=== PATIENT | male | born 1965 | race Caucasian/White ===

== ENCOUNTER 2023-05-17 15:00 | Outpatient (CLI) | payer OTHER, SELFPAY ==
[2023-05-17 19:01] LABS: Hemoglobin A1C 6.4 % (<5.7)
== END 2023-05-17 15:01 | disposition home or self-care (01) ==
LOC: ANHGOSHLAB 15:02
PROVIDERS: PCP Internal Medicine; Visit Provider Nurse Practitioner
DX: E11.9 Type 2 diabetes mellitus without complications (principal)
CPT/HCPCS: 36415; 83036

== ENCOUNTER 2024-05-21 14:56 | Outpatient (CLI) | payer OTHER, SELFPAY ==
[2024-05-21 16:50] LABS: Anion Gap 10 mmol/L (4-12); Blood Urea Nitrogen 22 mg/dL (9-20); Calcium 9.2 mg/dL (8.4-10.2); Carbon Dioxide 29 mmol/L (22-30); Chloride 97 mmol/L (98-107); Estimated Glomerular Filt Rate > 60; Glucose 133 mg/dL (65-110); Potassium 3.3 mmol/L (3.4-5.0); Sodium 136 mmol/L (137-145)
[2024-05-21 21:10] LABS: Hemoglobin A1C 6.6 % (<5.7)
== END 2024-05-21 14:57 | disposition home or self-care (01) ==
LOC: ANHGOSHLAB 14:57
PROVIDERS: PCP Internal Medicine; Visit Provider Clinical Nurse Specialist
DX: E11.9 Type 2 diabetes mellitus without complications (principal)
CPT/HCPCS: 36415; 80048; 83036

== ENCOUNTER 2024-08-03 01:22 | Day surgery (SDC) | payer OTHER, SELFPAY ==
[2024-07-25 09:04] VITALS: BMI 32.1
--- NOTE | 2024-07-25 09:31 | PC.NURSE ---
request for crmd and office visit notes faxed to dr jimenez at [facility]. confirmation of fax rec'd.
[2024-08-03 08:31] VITALS: BP 139/84; PULSE 62; RESP 18; TEMP 36.3; O2SAT 97; BMI 31.6
[2024-08-03] MEDS: LACTATED RINGERS 1,000 ML 150 ML IV CONT (08:40)
[2024-08-03 08:41] LABS: Glucose Point of Care 87 mg/dl (65-105)
--- NOTE | 2024-08-03 09:19 | P.PNAN_ITS ---
Anes - Initial Pre Proc Eval Procedure: Operation Date: 08/03/24 09:30 Proposed Procedures p Screening Colonoscopy - Kodak Bautista MD Date/Time: 08/03/24 09:19 Surgeon: Kodak Bautista MD Pre Op Diagnosis: screening colon Patient Data Age: 58 Gender: M Height: 1.7 m Weight: 91.8 kg Last Vital Signs Temp 97.3 F L 08/03/24 08:31 Pulse 62 08/03/24 08:31 Resp 18 08/03/24 08:31 BP 139/84 08/03/24 08:31 Pulse Ox 97 08/03/24 08:31 O2 Del Method Room Air 08/03/24 08:31 Allergies Allergy/AdvReac Type Severity Reaction Status Date / Time No Known Allergies Allergy Verified 08/03/24 08:30 Home Medications Medication Instructions Recorded Confirmed Type aspirin 81 mg tablet,delayed 81 mg PO DAILY #90 tabs 07/26/23 08/03/24 Rx release atorvastatin 40 mg tablet 40 mg PO QHS #90 tabs 05/23/24 08/03/24 Rx enalapril maleate 10 mg tablet 10 mg PO DAILY #90 tabs 05/23/24 08/03/24 Rx hydrochlorothiazide 25 mg tablet 25 mg PO DAILY #90 tabs 05/23/24 08/03/24 Rx metoprolol tartrate 25 mg tablet 25 mg PO BID #180 tabs 05/23/24 08/03/24 Rx tadalafil 10 mg tablet 10 mg PO DAILY PRN sexual activity 05/23/24 08/03/24 Rx #90 tabs empagliflozin 25 mg tablet 25 mg PO DAILY #90 tabs 06/01/24 08/03/24 Rx (Jardiance) Laboratory Tests 08/03/24 08:36 POC Capillary Glucose 87 mg/dl (65-105) Patient hx anesthesia problems: none Family hx anesthesia problems: none Results Review: All pre-operative results and documents have been reviewed as part of the pre- operative evaluation. [facility] Past Medical History Medical History Biceps tendinosis of shoulder Diabetes mellitus Gastric bleed Heart disease Hypertension Pacemaker 2015 Surgical History Surgical History History of carpal tunnel release (~2017) History of hernia repair (~2009) Family History Family History Mother Diabetes mellitus Cancer Father Diabetes mellitus Hypertension Heart problem Grandparent Diabetes mellitus Hypertension Sibling Heart problem Hypertension Other Diabetes mellitus Heart problem Hypertension Social History Social History Smoking status: Never smoker Alcohol intake: current Alcohol use details: once a week or so Substance use: never Substance use type: does not use Lack of Transportation: No Lack of Food: Never True Current Housing: I Have Housing Concerned About Future Housing: No Difficulty Paying Gas/Electric Bills: No Difficulty Paying for Meds: No Currently Unemployed: No Education: Trade/Vocational Certificate Difficulty w/ Childcare or Family Care: No Living arrangements: with family Spiritual care concerns: No Anes - Eval Final PreProcedure Day of Procedure 08/03/24 09:19 Patient weight: obese Heart: regular rate and rhythm Lungs: clear to auscultation Airway: Mallampati scale class II Neurological: alert and oriented Last oral intake: >/= 8 hours ASA classification: III Emergent: no Anesthetic plan: proceed Anesthesia type and monitoring: general GIVS and standard monitoring Results Review: All pre-operative results and documents have been reviewed as part of the pre- operative evaluation. HTN, hyperlipidemia, medtronic pacemaker and is not dependent. Pt physically active w construction work, golf, no cp or sob. Informed Consent: The patient's anesthetic plan and its attendant risks and benefits were discussed with the patient/family/POA. Questions were solicited and answers provided to the satisfaction of the patient/family/POA.
--- NOTE | 2024-08-03 10:02 | PM.IMHP ---
H&P: HPI History of Present Illness Date/Time: 08/03/24 10:02 Chief Complaint: This is the patient's second colonoscopy after 10 years. There are no GI symptoms and there is no family history of colorectal cancer. Narrative: as above Review of Systems Review of Systems: All systems reviewed & are unremarkable except as noted in HPI and below PMFSH Past Medical History Medical History Biceps tendinosis of shoulder Diabetes mellitus Gastric bleed Heart disease Hypertension Pacemaker 2014 Surgical History Surgical History History of carpal tunnel release (~2016) History of hernia repair (~2009) Family History Family History Mother Diabetes mellitus Cancer Father Diabetes mellitus Hypertension Heart problem Grandparent Diabetes mellitus Hypertension Sibling Heart problem Hypertension Other Diabetes mellitus Heart problem Hypertension Social History Social History Smoking status: Never smoker Alcohol intake: current Alcohol use details: once a week or so Substance use: never Substance use type: does not use Lack of Transportation: No Lack of Food: Never True Current Housing: I Have Housing Concerned About Future Housing: No Difficulty Paying Gas/Electric Bills: No Difficulty Paying for Meds: No Currently Unemployed: No Education: Trade/Vocational Certificate Difficulty w/ Childcare or Family Care: No Living arrangements: with family Spiritual care concerns: No Meds Home Medications and Allergies Home Medications Medication Instructions Recorded Confirmed Type aspirin 81 mg tablet,delayed 81 mg PO DAILY #90 tabs 07/26/23 08/03/24 Rx release atorvastatin 40 mg tablet 40 mg PO QHS #90 tabs 05/23/24 08/03/24 Rx enalapril maleate 10 mg tablet 10 mg PO DAILY #90 tabs 05/23/24 08/03/24 Rx hydrochlorothiazide 25 mg tablet 25 mg PO DAILY #90 tabs 05/23/24 08/03/24 Rx metoprolol tartrate 25 mg tablet 25 mg PO BID #180 tabs 05/23/24 08/03/24 Rx tadalafil 10 mg tablet 10 mg PO DAILY PRN sexual activity 05/23/24 08/03/24 Rx #90 tabs empagliflozin 25 mg tablet 25 mg PO DAILY #90 tabs 06/01/24 08/03/24 Rx (Jardiance) Allergies Allergy/AdvReac Type Severity Reaction Status Date / Time No Known Allergies Allergy Verified 08/03/24 08:30 Vital Signs Vital Signs - 24 hr 08/03/24 08:31 Temperature 97.3 F L Pulse Rate 62 Respiratory Rate 18 Blood Pressure 139/84 Pulse Oximetry 97 Oxygen Delivery Room Air Assessment and Plan Assessment and plan (1) Screening for colon cancer: Code(s): Z12.11 - Encounter for screening for malignant neoplasm of colon Status: Acute Plan The patient is deemed a good candidate for the procedure. Consent signed. Will proceed.
[2024-08-03 10:31] VITALS: BP 103/76; PULSE 57; RESP 17; O2SAT 95
[2024-08-03 10:41] VITALS: BP 115/81; PULSE 63; RESP 19; O2SAT 96
[2024-08-03 10:51] VITALS: BP 136/89; PULSE 60; RESP 18; O2SAT 100
== END 2024-08-03 11:02 | disposition home or self-care (01) ==
PROVIDERS: PCP Nurse Practitioner; Referring Provider Nurse Practitioner; Visit Provider Internal Medicine Gastroenterology
PROC: 0DJD8ZZ Inspection of Lower Intestinal Tract, Via Natural or Artificial Opening Endoscopic (ICD-10-PCS; CPT 45378; principal; 2024-08-03 09:30)
DX: Z12.11 Encounter for screening for malignant neoplasm of colon (principal); K62.1 Rectal polyp; K63.5 Polyp of colon; E11.9 Type 2 diabetes mellitus without complications; I11.9 Hypertensive heart disease without heart failure; E66.9 Obesity, unspecified; Z68.31 Body mass index [BMI] 31.0-31.9, adult; Z79.82 Long term (current) use of aspirin; Z79.84 Long term (current) use of oral hypoglycemic drugs; Z98.890 Other specified postprocedural states; Z95.0 Presence of cardiac pacemaker; Z80.9 Family history of malignant neoplasm, unspecified; Z82.49 Family history of ischemic heart disease and other diseases of the circulatory system
CPT/HCPCS: 45385; 82948; 88305; J2003; J2371; J2704; J7120

== ENCOUNTER 2024-11-26 09:15 | Outpatient (CLI) | payer OTHER, SELFPAY ==
--- OUTSIDE RECORDS SUMMARY | 2024-11-26 11:57 | XMS_ITS | Encounter Summary ---
Author Organization [facility] Address [facility] [place] [address] Care Team Providers Care Roller Picker Name Role Phone Pablo Villanueva MD Unavailable [phone] Conrad Pradhan MD Primary Care Provider [phone] Joseline Juarez NP Primary Care Provider [phone] Encounter Details Date Type Department Care Team (Late st Contact Info) Description 02/05/2022 [facility] Message Enc [facility] [address] [address] Mychart, [facility] Provider echo results Social History Tobacco Use Types Packs/Day Years Used Date Smoking Tobacco: Never Smokeless Tobacco: Never Alcohol Use Standard Drinks/Week Comments Yes 0 (1 standard drink = 0.6 oz pur e alcohol) occ. AUDIT-C Answer Date Recorded Q1: How often do you have a drink containing alc ohol? Monthly or less 05/26/2020 Q2: How many drinks containi ng alcohol do you have on a typical day when you are drinking? 1 or 2 05/26/2020 Q3: How often do you have si x or more drinks on one occasion? 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 No / Unsure 02/08/2022 6:55 AM CDT documented as of this encounter Plan of Treatment Upcoming Encounters Date Type Department Care Team (Late st Contact Info) Description 12/03/2024 1:00 PM LINER MACHINE OPERATOR HELPER Allied Health/Nurse Visit [facility] [address] [phone] Pablo Villanueva MD [address] [id number] 01/17/2025 9:45 AM CDT Office Visit [address] [phone] Pablo Villanueva MD [address] [id number] 02/18/2025 2:15 PM CDT [facility] [address] [address] Pablo Villanueva MD [facility] [address] [place], [place] [address] documented as of this encounter Visit Diagnoses Not on filedocumented in this encounter Additional Health Concerns Assessment Noted Time PHQ-9 Depression Total Score: 0 08/13/20 21 7:05 AM CDT documented as of this encounter Care Teams Roller Picker Relationship Specialty Start Date End Date Conrad Pradhan MD [facility] [address] [place] [address] PCP - General FAMILY PRACTICE 12/08/21 10/09/22 Joseline Juarez NP [address] [facility] [address] [place], [place] [id number] PCP - General NURSE PRACTITIONER 10/10/22 Pablo Villanueva MD [facility]. [address] [address]/Medical Interpreter CARDIOVASCULAR DISEASE 03/10/16 documented as of this encounter
--- OUTSIDE RECORDS SUMMARY | 2024-11-26 11:57 | XMS_ITS | Referral Summary ---
Author Organization [facility] Address [address] [place] [id number] Care Team Providers Care Fish Seiner Name Role Phone Conrad Pradhan MD Primary Care Provider [phone] Allergies Active Allergy Reactions Criticality Noted Date Comments Pravastatin Rash Medium 10/04/2019 Medications nitroglycerin (NITROSTAT) 0.[address] 0.4 mg under the tongue every 5 (five) minutes as needed 2 Active metoprolol tartrate (LOPRESSOR) 25 mg immediate release tabletIndicatio ns:Pacemaker Take 1 tablet (25 mg total) by mouth 2 (two) times a day 180 tablet 1 2 Active metFORMIN (GLUCOPHAGE) 1,000 mg tabletIndicatio ns:Controlled type 2 diabetes mellitus without complication, without long-term current use of insulin ([facility]) (HCC) Take 1 tablet (1,000 mg total) by mouth 2 (two) times a day with meals 180 tablet 1 2 Active enalapriL-hydro chlorothiazide (VASERETIC) 10-25 mg per tabletIndicatio ns:Hypertension , essential Take 1 tablet by mouth daily 90 tablet 1 2 Active atorvastatin (LIPITOR) 40 mg tabletIndicatio ns:Dyslipidemia Take 1 tablet (40 mg total) by mouth nightly 90 tablet 1 2 Active aspirin 81 mg enteric coated tabletIndicatio ns:Pacemaker Take 1 tablet (81 mg total) by mouth daily 90 tablet 1 2 Active tadalafiL (ADCIRCA) 10 mg tablet Take 1 tablet (10 mg total) by mouth daily as needed for erectile dysfunction 10 tablet 1 2 Active Active Problems Problem Noted Date Diagnosed Date Sensorineural hearing loss (SNHL) of both ears 1 12/01/2021 Tinnitus of both ears 09/30/2022 Tailbone injury, initial encounter 02/09/2022 Diaphoresis 01/14/2022 Assessment & Plan (01/14/2022 9:46 AM CDT): Recent occurrence (yesterday), seen in ER with unremarkable workup except for elevated TSH level-recommended follow-up with floor layer, stated had already called floor layer and was waiting for call back today. Lower abdominal pain 01/14/2022 Assessment & Plan (01/14/2022 9:46 AM CDT): Acute-ordered abdominal x-ray. Advised follow-up with PCP next week if symptoms persist, ER if worsening or new symptoms. Abdominal bloating 01/14/2022 Assessment & Plan (01/14/2022 9:47 AM CDT): Acute-ordered abdominal x-ray. Advised follow-up with PCP next week if symptoms persist, ER if worsening or new symptoms. Elevated TSH 01/14/2022 Assessment & Plan (01/14/2022 9:45 AM CDT): New finding-ordered TSH level in 1 month. Vasovagal near syncope 01/14/2022 Assessment & Plan (01/14/2022 9:46 AM CDT): Recent occurrence (yesterday), seen in ER with unremarkable workup except for elevated TSH level-recommended follow-up with floor layer, stated had already called floor layer and was waiting for a call back today. Snoring 12/14/2021 Hypersomnia 12/14/2021 Assessment & Plan (12/14/2021 9:59 AM ASSISTANT PROFESSOR OF LIFE SCIENCES): I have ordered a nocturnal polysomnogram split night protocol if necessary, no MSLT. Class 1 obesity due to exces s calories without serious comorbidity with body mass index (BMI) of 32.0 to 32.9 in adult 11/17/2021 Assessment & Plan (11/17/2021 10:46 AM ASSISTANT PROFESSOR OF LIFE SCIENCES): Recommended aggressive Lifestyle modification and weight loss for improving overall weight related health conditions. Follow up in 1 or 3 months for continuing Lifestyle Medicine education and management visit. Dyslipidemia 11/17/2021 Hypertension, essential 11/17/2021 Pacemaker 11/17/2021 Controlled type 2 diabetes m ellitus without complication, without long-term current use of insulin ([facility]) 11/17/2021 Social History Tobacco Use Types Packs/Day Years Used Date Smoking Tobacco: Never AUDIT-C Answer Date Recorded Q1: How often do you have a drink containing alc ohol? Monthly or less 11/17/2021 Q2: How many drinks containi ng alcohol do you have on a typical day when you are drinking? 1 or 2 11/17/2021 Q3: How often do you have si x or more drinks on one occasion? Never 11/17/2021 PHQ-2 Answer Date Recorded PHQ-2 Total Score (If total score is 3 or more points, staff should administer the PHQ-9) 0 11/17/2021 Personal Safety Answer Date Recorded Getting School Help Needed Not on file 10/12 Sex and Gender Information Value Date Recorded Sex Assigned at Not on file Legal Sex Male 12:38 AM ASSISTANT PROFESSOR OF LIFE SCIENCES Gender Identity Not on file Sexual Orientation Not on file Last Filed Vital Signs Vital Sign Reading Time Taken Comments Blood Pressure 140/92 06/01/2022 10:37 PM CDT Pulse 69 06/01/2022 10:37 PM CDT Temperature 36.6 C (97.9 F) 06/01/2022 10:37 PM CDT Respiratory Rate 18 09/30/2022 10:52 AM ASSISTANT PROFESSOR OF LIFE SCIENCES Oxygen Saturation 96% 06/01/2022 10:37 PM CDT Inhaled Oxygen Concentration - - Weight 88.5 kg (195 lb) 09/30/2022 10:52 AM ASSISTANT PROFESSOR OF LIFE SCIENCES Height 170.2 cm (5' 7 ) 09/30/2022 10:52 AM ASSISTANT PROFESSOR OF LIFE SCIENCES Body Mass Index 30.54 09/30/2022 10:52 AM ASSISTANT PROFESSOR OF LIFE SCIENCES Plan of Treatment Not on file Procedures Procedure Name Priority Date/Time Associated Diagnosis Comments POCT HEMOGLOBIN A1C Routine 05/31/2022 7 :25 AM CDT Controlled type 2 diabetes mellitus without complication, without long-term current use of insulin ([facility]/H[facility]) (HCC) PSA, TOTAL Routine 03/01/2018 COLONOSCOPY Routine 12/24/2011 from Last 3 Months or Most Recently Relevant to Health Maintenance Results * POCT hemoglobin A1c (05/31/2022 7:25 AM CDT) Hemoglobin A1C, POC 6.2 Blood specimen (specimen) 05/31/2022 7:25 AM CDT Narrative Esthela Marinelli LPN - 05/31/2022 7:25 AM CDT Lot [id number] /[id number] 12/03/2023 Conrad Pradhan MD POINT OF CARE TEST ORDERABLES Fi nal Result * PSA, total Blood (03/01/2018) SCRIBED PSA, Total 0.87 > - 400 Blood specimen (specimen) 03/01/2018 Result [facility] Historical Provider LAB BLOOD ORDERABLES Katrin l Result * Colonoscopy (12/24/2011) Anatomical Region Laterality Modality Other Historical Provider ENDOSCOPY PROCEDURES Katrin l Result from Last 3 Months or Most Recently Relevant to Health Maintenance Insurance [employer] [facility] HMO HMO HMO/POS Care Teams Fish Seiner Relationship Specialty Start Date End Date Conrad Pradhan MD PCP - General Family Medicine 10/20/21
--- OUTSIDE RECORDS SUMMARY | 2024-11-26 11:57 | XMS_ITS | Encounter Summary ---
Author Organization [facility] Address [address] [place] [address] Care Team Providers Care Professor Of Voice Name Role Phone Pablo Villanueva MD Unavailable Pina Weaver SQL CONSULTANT Primary Care Provider Unav ailable Lyla Zendejas MD Primary Care Provider [phone] Conrad Pradhan MD Primary Care Provider [phone] Joseline Juarez NP Primary Care Provider [phone] Encounter Details Date Type Department Care Team (Late st Contact Info) Description 05/30/2018 [facility] at [address] [address] Scarlett Adams MA Social History Tobacco Use Types Packs/Day Years Used Date Smoking Tobacco: Never Smokeless Tobacco: Never Alcohol Use Standard Drinks/Week Comments No 0 (1 standard drink = 0.6 oz pur e alcohol) Sex and Gender Information Value Date Recorded Sex Assigned at Male 04/05/2019 4:16 PM CDT Legal Sex Male 11:24 PM CDT Gender Identity Male 04/05/2019 4:16 PM CDT Sexual Orientation Straight 04/05/2019 4: 16 PM CDT 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. [address] [place] [address] 01/17/2025 9:45 AM CDT Office [facility] [address] [place] [address] Pablo Villanueva MD [facility]. [address] [place] [address] 02/18/2025 2:15 PM CDT [facility] [address] [place] [address] Pablo Villanueva MD [facility]. [facility] [address] [place] [address] documented as of this encounter Procedures Procedure Name Priority Date/Time Associated Diagnosis Comments COMPREHENSIVE METABOLIC PANEL Routine 10/25/2023 LIPID PANEL Routine 10/25/2023 CBC, MANUAL DIFF Routine 10/25/2023 PROSTATE SPECIFIC ANTIGEN,TOTAL Routine 03/01/2018 COMPREHENSIVE METABOLIC PANEL Routine 03/01/2018 LIPID PANEL Routine 03/01/2018 HEMOGLOBIN, GLYCOSYLATED Routine 03/01/2018 THYROID STIM HORMONE TSH Routine 03/01/2018 VITAMIN D, 25 OH Routine 03/01/2018 documented in this encounter Results * COMPREHENSIVE METABOLIC PANEL (10/25/2023) Pathologist [facility] SODIUM S/P/B 140 GLUCOSE 136 mg/dL AST 12 BUN 21 CREATININE S/P/B 0.89 0.7 - 1.3 CALCIUM S/P/B 8.7 POTASSIUM S/P/B 4.0 CHLORIDE S/P/B 104 ALT 21 GFR ESTIMATE 98 us Default History Genericprovider LABORATORY Edited Result - Final * LIPID PANEL (10/25/2023) Pathologist [facility] CHOLESTEROL 155 TRIGLYCERIDES 182 HDL 43 LDL (CALCULATED) 84 NON HDL CHOLESTEROL 112 us Default History Genericprovider LABORATORY Edited Result - Final * CBC, MANUAL DIFF (10/25/2023) Pathologist [facility] WBC 6.0 HGB 13.6 HCT 39.8 PLT 155 Default History Genericprovider LABORATORY Edited Result - Final * VITAMIN D, 25 OH (03/01/2018) Pathologist [facility] VITAMIN D 25 HYDROXY S/P/B 39 03/01/2018 us Doc [facility] LABORATORY Final Result * PROSTATE SPECIFIC ANTIGEN,TOTAL (03/01/2018) Pathologist [facility] PSA 0.87 03/01/2018 us Doc [facility]AT[facility] Final Result * THYROID STIM HORMONE, TSH (03/01/2018) Pathologist [facility] TSH 1.693 03/01/2018 us Doc [facility] Final Result * LIPID PANEL (03/01/2018) Pathologist [facility] CHOLESTEROL 139 HDL 43 TRIGLYCERIDES 184 NON HDL CHOLESTEROL 96 LDL (CALCULATED) 59.2 03/01/2018 us Doc [facility] Final Result * HEMOGLOBIN, GLYCOSYLATED (03/01/2018) HGB A1C 6.6 03/01/2018 us Doc [facility] Final Result * COMPREHENSIVE METABOLIC PANEL (03/01/2018) SODIUM S/P/B 137 POTASSIUM S/P/B 4.2 CO2 29.9 CHLORIDE S/P/B 101 GLUCOSE 119 mg/dL CALCIUM S/P/B 10.0 BUN 15 CREATININE S/P/B 0.96 0.7 - 1.3 EGFR AFR. AMER. >90 EGFR NON-AFR. AMER. 89 <=90 ALKALINE PHOSPHATASE S/P/B 59 ALT 24 AST 15 BILIRUBIN TOTAL S/P/B 0.5 ALBUMIN S/P/B 4.0 3.5 - 5.0 TOTAL PROTEIN S/P/B 6.8 03/01/2018 us Doc [facility] Final Result documented in this encounter Visit Diagnoses Not on filedocumented in this encounter Care Teams Professor Of Voice Relationship Specialty Start Date End Date Pina Weaver NP [address] [address] PCP - General NURSE PRACTITIONER 05/10/18 08/12/21 [place] [address] [place] [address] PCP - General FAMILY PRACTICE 08/13/21 12/07/21 [place] [address] [place] [address] PCP - General FAMILY PRACTICE 12/08/21 10/09/22 Joseline Juarez NP [address] [facility] [address] [place], [place] [phone] PCP - General NURSE PRACTITIONER 10/10/22 Pablo Villanueva MD [facility]. [address] [address] [place] Logistics Assistant CARDIOVASCULAR DISEASE 03/10/16 documented as of this encounter
--- OUTSIDE RECORDS SUMMARY | 2024-11-26 11:57 | XMS_ITS | Encounter Summary ---
Author Organization [facility] Address [address] [place] [address] Care Team Providers Care Broadcast Maintenance Technician Name Role Phone CatieFabiola de la rosa FANNIE Primary Care Provider Unava ilPablo Parisi MD Unavailable [phone] Pina Weaver OXYGEN PLANT OPERATOR Primary Care Provider Unav ailable Lyla Zendejas MD Primary Care Provider [phone] Conrad Pradhan MD Primary Care Provider [phone] Joseline Juarez OXYGEN PLANT OPERATOR Primary Care Provider [phone] Encounter Details Date Type Department Care Team (Late st Contact Info) Description 06/07/2017 Abstract [facility] AT [address] [address] Scarlett Adams MA Social History Tobacco Use [...] 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 [address] [place] [address] 01/17/2025 9:45 AM CDT Office Visit [address] [phone] Pablo Villanueva MD [facility]. [facility] [address] [place] [address] 02/18/2025 2:15 PM CDT [facility] [address] [place] [address] Pablo Villanueva MD [facility] [address] [place] [address] documented as of this encounter Procedures Procedure Name Priority Date/Time Associated Diagnosis Comments COMPREHENSIVE METABOLIC PANEL Routine 06/03/2017 LIPID PANEL Routine 06/03/2017 documented in this encounter Results * LIPID PANEL (06/03/2017) CHOLESTEROL 129 HDL 50 TRIGLYCERIDES 102 LDL (CALCULATED) 60 06/03/2017 us Doc [facility] LABORATORY Final Result * COMPREHENSIVE METABOLIC PANEL (06/03/2017) SODIUM S/P/B 141 POTASSIUM S/P/B 4.4 CO2 29 CHLORIDE S/P/B 104 GLUCOSE 112 mg/dL CALCIUM S/P/B 9.6 BUN 20 CREATININE S/P/B 0.98 0.7 - 1.3 EGFR AFR. AMER. 102 EGFR NON-AFR. AMER. 88 <=90 ALKALINE PHOSPHATASE S/P/B 57 ALT 17 AST 14 BILIRUBIN TOTAL S/P/B 0.7 ALBUMIN S/P/B 4.3 3.5 - 5.0 TOTAL PROTEIN S/P/B 6.6 GLOBULIN 2.3 06/03/2017 us Doc [facility] Abstract LABORATORY Final Result documented in this encounter Visit Diagnoses Not on filedocumented in this encounter Care Teams Broadcast Maintenance Technician Relationship Specialty Start Date End Date Fabiola Haddad APNP PCP - General LAUNDRY ROOM ATTENDANT 03/10/16 05/09/18 Pina Weaver NP [facility]. [address] [address] PCP - General NURSE PRACTITIONER 05/10/18 08/12/21 [place] [address] [place] [address] PCP - General FAMILY PRACTICE 08/13/21 12/07/21 [place] [address] [place] [address] PCP - General FAMILY PRACTICE 12/08/21 10/09/22 Joseline Juarez NP [address] [place] [address] [address] [place] [address] PCP - General NURSE PRACTITIONER 10/10/22 Pablo Villanueva MD [facility] [address] [place] [address] Anne Fluorescent Solution Mixer CARDIOVASCULAR DISEASE 03/10/16 documented as of this encounter
--- OUTSIDE RECORDS SUMMARY | 2024-11-26 11:57 | XMS_ITS | Encounter Summary ---
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 No / Unsure 02/08/2022 6:55 AM CDT documented as of this encounter Plan of Treatment Upcoming Encounters Date Type Department Care Team (Late st Contact Info) Description 12/03/2024 1:00 PM CAFE TEAM MEMBER Allied Health/Nurse Visit [facility] [address] [phone] Pablo Villanueva MD [address] [address] 01/17/2025 9:45 AM CDT Office Visit [address] [phone] Pablo Villanueva MD [address] [phone] 02/18/2025 2:15 PM CDT Allied [facility] [address] [address] Pablo Villanueva MD [facility]. [facility] [address] [place] [address] documented as of this encounter Visit Diagnoses Not on filedocumented in this encounter Additional Health Concerns Assessment Noted Time PHQ-9 Depression Total Score: 0 08/13/20 21 7:05 AM CDT documented as of this encounter Care Teams Line Camera Operator Relationship Specialty Start Date End Date Conrad Pradhan MD [facility] [address] [place] [address] PCP - General FAMILY PRACTICE 12/08/21 10/09/22 Joseline Juarez NP [address] [facility] [address] [place], [place] [id number] PCP - General NURSE PRACTITIONER 10/10/22 Pablo Villanueva MD [facility]. [address] [address] Anne Warehouse Logistics Manager CARDIOVASCULAR DISEASE 03/10/16 documented as of this encounter
--- OUTSIDE RECORDS SUMMARY | 2024-11-26 11:57 | XMS_ITS | Encounter Summary ---
Author Organization [facility] Address [address] [place] [address] Care Team Providers Care Abrasive Mixer Name Role Phone Pablo Villanueva MD Unavailable [phone] Pina Weaver BASKETBALL REFEREE Primary Care Provider Unav ailable Lyla Zendejas MD Primary Care Provider Conrad Pradhan MD Primary Care Provider [phone] Joseline Juarez BASKETBALL REFEREE Primary Care Provider [phone] Encounter Details Date Type Department Care Team (Late st Contact Info) Description 08/22/2020 [employer] Message Enc [facility] ped[facility] [address] [address] [place], [facility] Provider Please send a pacemaker transmission after you Nerve study Social History Tobacco Use Types Packs/Day Years Used Date Smoking Tobacco: Never Smokeless Tobacco: Never Alcohol Use Standard Drinks/Week Comments Yes 0 (1 standard drink = 0.6 oz pur e alcohol) AUDIT-C Answer Date Recorded Q1: How often do you have a drink containing alc ohol? Monthly or less 05/26/2020 Q2: How many drinks containi ng alcohol do you have on a typical day when you are drinking? 1 or 2 05/26/2020 Q3: How often do you have si x or more drinks on one occasion? 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 [address] [address] 02/18/2025 2:15 PM CDT [facility] [address] [address] Pablo Villanueva MD [facility]. [address] [address] documented as of this encounter Visit Diagnoses Not on filedocumented in this encounter Care Teams Abrasive Mixer Relationship Specialty Start Date End Date Pina Weaver NP [facility] [address] [place] [address] PCP - General NURSE PRACTITIONER 05/10/18 08/12/21 Lyla Zendejas [place] [address] [place] [id number] PCP - General FAMILY PRACTICE 08/13/21 12/07/21 [place] [address] [facility] [place] [address] PCP - General FAMILY PRACTICE 12/08/21 10/09/22 Joseline Juarez NP [address] [facility] [address] [place] [address] PCP - General NURSE PRACTITIONER 10/10/22 Pablo Villanueva MD [address] [address] Tyrone Lean Manufacturing Leader CARDIOVASCULAR DISEASE 03/10/16 documented as of this encounter
--- OUTSIDE RECORDS SUMMARY | 2024-11-26 11:57 | XMS_ITS | Clinical Summary ---
Author Organization [facility] Address [address] [place] [phone] Care Team Providers Care Transition Teacher Name Role Phone Conrad Pradhan MD Primary Care Provider [phone] Allergies Active Allergy Reactions Criticality Noted Date [...] complication, without long-term current use of insulin ([facility]) (HCC) Take 1 tablet (1,000 mg [...] except for elevated TSH level-recommended follow-up with jewelry polisher, stated had already called jewelry polisher and was waiting for call back today. [...] except for elevated TSH level-recommended follow-up with jewelry polisher, stated had already called jewelry polisher and was waiting for a call back today. Snoring 12/14/2021 Hypersomnia 12/14/2021 Assessment & Plan (12/14/2021 9:59 AM CONSTRUCTION MANAGER): I have ordered a nocturnal polysomnogram split night protocol if necessary, no MSLT. Class 1 obesity due to exces s calories without serious comorbidity with body mass index (BMI) of 32.0 to 32.9 in adult 11/17/2021 Assessment & Plan (11/17/2021 10:46 AM CONSTRUCTION MANAGER): Recommended aggressive Lifestyle modification and weight loss for improving overall weight related health conditions. Follow up in 1 or 3 months for continuing Lifestyle Medicine education and management visit. Dyslipidemia 11/17/2021 Hypertension, essential 11/17/2021 Pacemaker 11/17/2021 Controlled type 2 diabetes m ellitus without complication, without long-term current use of insulin (CMS/HCC) 11/17/2021 Surgical History Surgery Date Site/Laterality Comments HERNIA REPAIR BICEPS TENDON REPAIR 08/10/2021 - 09/08/2021 CARPAL TUNNEL RELEASE INSERT / REPLACE / REMOVE PACEMAKER Medical History Medical History Date Comments Diabetes mellitus (HCC) Hypertension Hyperlipidemia GI bleed Family History Medical History Relation Name Comments Heart disease Father Breast cancer Mother Diabetes Mother Relation Name Status Comments Father Mother Alive Social History Tobacco Use Types Packs/Day Years [...] on file Legal Sex Male 12:38 AM CONSTRUCTION MANAGER Gender Identity Not on file Sexual Orientation Not on file Obstetrics History Last Filed Vital Signs Vital Sign Reading Time Taken Comments Blood Pressure 140/92 06/01/2022 10:37 PM CDT Pulse 69 06/01/2022 10:37 PM CDT Temperature 36.6 C (97.9 F) 06/01/2022 10:37 PM CDT Respiratory Rate 18 09/30/2022 10:52 AM CONSTRUCTION MANAGER Oxygen Saturation 96% 06/01/2022 10:37 PM CDT Inhaled Oxygen Concentration - - Weight 88.5 kg (195 lb) 09/30/2022 10:52 AM CONSTRUCTION MANAGER Height 170.2 cm (5' 7 ) 09/30/2022 10:52 AM CONSTRUCTION MANAGER Body Mass Index 30.54 09/30/2022 10:52 AM CONSTRUCTION MANAGER Plan of Treatment Health Maintenance Due Date Last Done Comments Albumin Creatinine Ratio, Urine 1965 Hepatitis C Screening 1965 eGFR 1965 Dilated Eye Exam 1965 Hepatitis B Screening 1981 Pneumococcal vaccine <65 (2 of 2 - PCV) 09/10/2021 09/10/2020 Colon Cancer Screening-Colonoscopy 12/23/20212011 Depression Screening 11/17/2022 11/17/2021 Regular Well Visit/Exam 18-64 11/17/2022 11/17/2021 Hemoglobin A1C 12/01/2022 05/31/2022, 11/17/2021 Lipid Panel 02/08/2023 02/08/2022, 03/01/2018 Foot Exam 05/31/2023 05/31/2022 Prostate Cancer Screening-PSA 02/10/2024 02/09/2022, 03/01/2018 Covid-19 Vaccine (2023-2 5 season) 2024 10/05/2021, 12/28/2020, 12/07/2020 Influenza Vaccine (#1) 2024 , 08/12/2021, 07/24/2021, Additional history exists DTaP/Tdap/Td Vaccine (2 - Td or Tdap) 08/13/2031 08/13/2021 Zoster Vaccine Completed 01/21/2021, 09/09, 09/23/2020 Procedures Procedure Name Priority Date/Time Associated Diagnosis Comments POCT HEMOGLOBIN A1C Routine 05/31/2022 7 :25 AM CDT Controlled type 2 diabetes mellitus without complication, without long-term current use of insulin (CMS/HCC) (HCC) PSA, TOTAL Routine 03/01/2018 COLONOSCOPY Routine 12/24/2011 from Last 3 Months or Most Recently Relevant to Health Maintenance Results * POCT hemoglobin A1c (05/31/2022 7:25 AM CDT) Hemoglobin A1C, POC 6.2 Blood specimen (specimen) 05/31/2022 7:25 AM CDT Narrative Mikhail Marinellindy Sal, KEYPUNCH OPERATOR - 05/31/2022 7:25 AM CDT Lot [id number] 12/03/2023 Conrad Pradhan MD POINT OF CARE TEST ORDERABLES Fi nal Result * PSA, total Blood (03/01/2018) SCRIBED PSA, Total 0.87 > - 400 Blood specimen (specimen) 03/01/2018 Candi Richardson MD LAB BLOOD ORDERABLES Katrin l Result * Colonoscopy (12/24/2011) Anatomical Region Laterality Modality Other Historical Provider ENDOSCOPY PROCEDURES Katrin l Result from Last 3 Months or Most Recently Relevant to Health Maintenance [facility] AETNA [place] HMO/POS Care Teams Transition Teacher Relationship Specialty Start Date End Date Conrad Pradhan MD PCP - General Family Medicine 10/20/21
--- OUTSIDE RECORDS SUMMARY | 2024-11-26 11:57 | XMS_ITS | Clinical Summary ---
Author Organization [facility] Administrative Offices Address [address] [place] [address] Care Team Providers Care Customer Support Analyst Name Role Phone Unavailable Primary Care Provider Unavailabl e Allergies Active Allergy Reactions Criticality Noted Date Comments Pravastatin Muscle Pain Medium 10/04/2019 Medications metoprolol tartrate (LOPRESSOR) 25 mg tablet Take 25 mg by mouth 2 times daily. 2 Active atorvastatin (LIPITOR) 40 mg tablet Take 40 mg by mouth daily at bedtime. 2 Active aspirin (ECOTRIN EC) 81 mg Tablet, Delayed Release (E.C.) Take 81 mg by mouth daily. 2 Active tadalafil (CIALIS) 10 mg tablet Take 10 mg by mouth 1 time daily as needed for Erectile Dysfunction. 1 Active Jardiance 25 mg tablet Take 25 mg by mouth daily. 4 Active enalapril (VASOTEC) 10 mg tablet Take 10 mg by mouth daily. Active hydroCHLOROthiazi de 25 mg tablet Take 25 mg by mouth daily. Active ketorolac tromethamine (ACULAR) 0.5 % solution Administer 1 Drop in left eye 4 times daily. 4 Active prednisoLONE acetate (PRED FORTE) 1 % suspension Administer 1 Drop in left eye 3 times daily. 4 Active traMADoL (ULTRAM) 50 mg tablet Take 1 Tablet (50 mg) by mouth every 6 hours as needed for pain 10 Tablet 11/15/2024 2:11 PM METAL WINDOW FRAME MAKER 5 Active Active Problems Problem Noted Date Diagnosed Date Malfunction of electrode lead of cardiac pacemak er 11/15/2024 SSS (sick sinus syndrome) 11/15/2024 Symptomatic bradycardia 11/15/2024 Cardiac pacemaker in situ 11/15/2024 Encounters Date Type Department Care Team Description 11/23/2024 10:00 AM METAL WINDOW FRAME MAKER Office Visit [facility] - [address] [facility] [phone] [facility] [address] [place] [address] SSS (sick sinus syndrome) ([facility]) (Primary Dx) 11/21/2024 Telephone [facility] - [address] [facility] [phone] [facility] [address] [place] [address] Chong Berger MD Continued left upper arm pain/swelling 11/20/2024 Abstract [facility] - [address] [facility] [phone] [facility] [address] [place] [address] Provider, Abstract 11/16/2024 1:00 PM METAL WINDOW FRAME MAKER Office Visit [facility] - [address] [facility] [phone] [facility] [facility] [address] [address] [place] [phone] Failure of pacemaker lead, initial encounter (Primary Dx); Cardiac pacemaker in situ 11/16/2024 12:45 PM METAL WINDOW FRAME MAKER - 11/16/2024 11:59 PM METAL WINDOW FRAME MAKER Hospital Encounter [facility] Testing [place] [address] [place] [address] Chong Berger MD Discharge Disposition: Home or Self Care 11/16/2024 Telephone [facility] - [address] [facility] [address] [place] [address] Chong Berger MD Venous doppler test result 11/16/2024 Telephone [facility] - [address] [facility] [address] [facility] [address] [place] [address] Chong Berger MD left arm swelling 11/15/2024 7:30 AM METAL WINDOW FRAME MAKER - 11/15/2024 10:24 AM METAL WINDOW FRAME MAKER Surgery [facility] Cardiac Lockstitch Back Maker [id number] [place] [address] Chong Berger MD Pacemaker lead extraction 11/15/2024 7:27 AM METAL WINDOW FRAME MAKER Anesthesia Event [facility] Cardiac Lockstitch Back Maker [id number] [place] [address] Carrie Kincaid MD Gherle, Emily N, ANP 11/15/2024 6:18 AM METAL WINDOW FRAME MAKER - 11/15/2024 2:55 PM METAL WINDOW FRAME MAKER Hospital Encounter [facility] Cardiac [place] [id number] [place] [phone] Chong Berger MD Kasinadhuni, Udayshanker, MD Malfunction of electrode lead of cardiac pacemaker Discharge Disposition: Home or Self Care 11/15/2024 Travel 11/06/2024 External Device Data STL ABSTRACTION Provider, Abstract 10/31/2024 External Device Data STL ABSTRACTION Provider, Abstract 10/31/2024 External Device Data STL ABSTRACTION Provider, Abstract 10/30/2024 7:53 AM METAL WINDOW FRAME MAKER - 10/30/2024 11:59 PM METAL WINDOW FRAME MAKER Hospital Encounter [facility] Pre Surgical Assessment [address] [place] [phone] Chong Berger MD Discharge Disposition: Home or Self Care 10/23/2024 External Device Data STL ABSTRACTION Provider, Abstract 10/23/2024 Prep for Surgery [facility] - [address] [facility] [phone] [facility] [address] [place] [phone] Chong Berger MD 10/23/2024 Telephone [facility] - [address] [facility] [phone] [facility] [address] [place] [phone] Chong Berger MD Schedule lead extraction from Last 3 Months Family History Medical History Relation Name Comments Heart Disease Brother Heart Disease Father No Known Problems Mother Relation Name Status Comments Brother Father Mother Social History Tobacco Use Types Packs/Day Years Used Date Smoking Tobacco: Never Alcohol Use Standard Drinks/Week Comments Yes 0 (1 standard drink = 0.6 oz pur e alcohol) rarely Feeling Safe Answer Date Recorded Are you in a relationship wi th someone who hurts you emotionally and/or physically? No 11/15/2024 Food Insecurity Answer Date Recorded Social/Environmental Concerns No concerns Transportation Needs Answer Date Record ed Social/Environmental Concerns No concerns Housing Stability Answer Date Recorded Social/Environmental Concerns No concerns Utility Needs Answer Date Recorded Social/Environmental Concerns No concerns Sex and Gender Information Value Date Recorded Sex Assigned at Not on file Legal Sex Male 3:59 PM METAL WINDOW FRAME MAKER Gender Identity Not on file Sexual Orientation Not on file Last Filed Vital Signs Vital Sign Reading Time Taken Comments Blood Pressure 121/80 11/15/2024 2:30 PM METAL WINDOW FRAME MAKER Pulse 65 11/15/2024 2:30 PM METAL WINDOW FRAME MAKER Temperature 36.6 C (97.9 F) 11/15/2024 10:05 AM METAL WINDOW FRAME MAKER Respiratory Rate 19 11/15/2024 2:30 PM METAL WINDOW FRAME MAKER Oxygen Saturation 94% 11/15/2024 2:30 PM METAL WINDOW FRAME MAKER Inhaled Oxygen Concentration - - Weight 98.4 kg (217 lb) 11/15/2024 6:31 AM METAL WINDOW FRAME MAKER Height 175.3 cm (5' 9 ) 11/15/2024 6:31 AM METAL WINDOW FRAME MAKER Body Mass Index 32.05 11/15/2024 6:31 AM METAL WINDOW FRAME MAKER Plan of Treatment Health Maintenance Due Date Last Done Comments DIABETES ANNUAL RETINAL EXAM 1981 DIABETES MICROALBUMIN ANNUAL SCREEN 1981 LDL CHOLESTEROL ANNUAL 1981 FIT-DNA Q 3 years 2008 FIT/FOBT Q 1 year 2008 Flex Sig/CT Colonography Q 5 years 2008 DIABETES HBA1C Q 6 MONTHS 12/01/20222021, 08/13/2021, 09/10/2020 DIABETES ANNUAL FOOT EXAM 05/31/2023 05/31/2022 RSV VACCINE (60+ or ) (1 - Risk 60-74 years 1-dose series) 2023 INFLUENZA VACCINE (#1) 2024 09/10/2020 COLORECTAL SCREENING 09/25/2024 09/25/2014, 12/24/19 12 Colorectal Cancer Screening 09/25/2024 Preventative Visit- Commercial 10/10/2024 0 11/17/2021, 08/13/2021, 09/01/2018 DTAP/TDAP/TD VACCINES (2 - T d or Tdap) 08/13/2031 08/13/2021 ZOSTER VACCINE Completed 01/21/2021, 09/23/2020 Medical Devices Implanted Type Area Tuckpointer Device Identifier Shelf Expiration Date Model / Serial / Lot Lead Capsurefix Novus Mri 58cm Endocardial Pacing 5077 5076-58 - [id number] Implanted:Qty: 1 on 11/15/2024 by Chong Berger MD at [facility] Lead Left: Chest [employer]TR[employer]- CRM - BULK BUY [id number] 02/15/2026 5076-58 / [id number] / Tyrx Antibacterial Envelope Med [id number] - [id number] Implanted:Qty: 1 on 11/15/2024 by Chong Berger MD at [facility] Mesh Left: Chest MEDTRON[employer]- CARD RHYTHM MGMT [id number] 08/17/2025 [id number] / / [id number] Pacemaker More Xt Dr Bashir Ipg Dual Chmbr Lesa [id number] - [id number] Implanted:Qty: 1 on 11/15/2024 by Chong Berger MD at [facility] Pacemaker Left: Chest [employer]- CRM - BULK BUY [id number] 04/22/2026 [id number] / [id number] / Explanted Type Area Tuckpointer Device Identifier Shelf Expiration Date Model / Serial / Lot Lead Capsurefix Novus Mri 58cm Endocardial Pacing 5077 5076-58 - [id number] Explanted:Qty: 1 on 11/15/2024 by Chong Berger MD at [facility] Lead N/A: Chest Wall [employer]- CRM - BULK BUY 5076-58 / [id number] / Description:Implant date: Pacemaker Advisa Dr Mckay Mcfadden [id number] - Csc-12/22/2014 Implanted:12/22 (Quantity not on file) Explanted:Qty: 1 on 11/15/2024 by Chong Berger MD at [facility] Pacemaker Chest Wall [employer]- CRM - BULK BUY [id number] / [id number] / Description:Implant date: Per Medtronic rep - MRI Confirmed conditional on 1.5 and 3T. - gera 10/13/20 Procedures Procedure Name Priority Date/Time Associated Diagnosis Comments TELEMETRY REPORT 11/21/2024 9:35 AM METAL WINDOW FRAME MAKER US DOPPLER VENOUS ARM LEFT Routine 11/16/2024 1:36 PM METAL WINDOW FRAME MAKER Failure of pacemaker lead, initial encounter Cardiac pacemaker in situ XR CHEST PA OR AP 1 VW Stat 11/15/2024 10:11 AM METAL WINDOW FRAME MAKER PACEMAKER GENERATOR CHANGE Routine 11/15/2024 9:15 AM METAL WINDOW FRAME MAKER Malfunction of electrode lead of cardiac pacemaker Cardiac pacemaker in situ SSS (sick sinus syndrome) (CMS/HCC) Symptomatic bradycardia PACEMAKER LEAD EXTRACTION Routine 11/15/2024 9:15 AM METAL WINDOW FRAME MAKER Malfunction of electrode lead of cardiac pacemaker Cardiac pacemaker in situ SSS (sick sinus syndrome) (CMS/HCC) Symptomatic bradycardia POC GLUCOSE Routine 11/15/2024 6:35 AM METAL WINDOW FRAME MAKER VERIFICATION BLOOD GROUP Stat 11/15/2024 6:34 AM METAL WINDOW FRAME MAKER Encounter for blood typing PREPARE RED BLOOD CELLS Routine 11/15/2024 6:20 AM METAL WINDOW FRAME MAKER PREPARE RED BLOOD CELLS Routine 11/15/2024 6:20 AM METAL WINDOW FRAME MAKER PREPARE RED BLOOD CELLS Routine 11/15/2024 6:20 AM METAL WINDOW FRAME MAKER PREPARE RED BLOOD CELLS Routine 11/15/2024 6:20 AM METAL WINDOW FRAME MAKER Malfunction of electrode lead of cardiac pacemaker Cardiac pacemaker in situ SSS (sick sinus syndrome) (CMS/HCC) Symptomatic bradycardia EKG 12-LEAD Routine 10/30/2024 9:29 AM METAL WINDOW FRAME MAKER SSS (sick sinus syndrome) (CMS/HCC) HTN (hypertension), benign TYPE AND SCREEN Routine 10/30/2024 9:12 AM METAL WINDOW FRAME MAKER Malfunction of electrode lead of cardiac pacemaker Cardiac pacemaker in situ SSS (sick sinus syndrome) (CMS/HCC) Symptomatic bradycardia BASIC METABOLIC PANEL Routine 10/30/2024 9:12 AM METAL WINDOW FRAME MAKER Malfunction of electrode lead of cardiac pacemaker Cardiac pacemaker in situ SSS (sick sinus syndrome) (CMS/HCC) Symptomatic bradycardia CBC WITH DIFFERENTIAL Routine 10/30/2024 9:12 AM METAL WINDOW FRAME MAKER Malfunction of electrode lead of cardiac pacemaker Cardiac pacemaker in situ SSS (sick sinus syndrome) (CMS/HCC) Symptomatic bradycardia from Last 3 Months Results * TELEMETRY REPORT (11/21/2024 9:35 AM METAL WINDOW FRAME MAKER) us Provider Scanning ECG ORDERABLES Final Result * US DOPPLER VENOUS ARM LEFT (11/16/2024 1:36 PM METAL WINDOW FRAME MAKER) Anatomical Region Laterality Modality Upper Extremity Ultrasound 11/16/2024 1:02 PM METAL WINDOW FRAME MAKER Narrative 11/16/2024 1:48 PM METAL WINDOW FRAME MAKER [facility] Testing Venous Exam Limited Upper Extremity Duplex Patient: Daniel Parada Study ID: [id number] Gender: M : 1965 Age: 59 Race: CAU Height Study Date: 11/16/2024 Weight: Access. #: [id number] *Referring Physician:* Chong Berger MD, Rajiv MD *Ordering Physician:* Chong Berger MD *Retail Coverage Merchandiser Lead:* Neetu Chacko RDCS, T History: Swelling in the left upper extremity. Study data: Study status: Routine. Left upper extremity venous duplex. Doppler flow study including spectral analysis, color and grubbs scale imaging. Birthdate: Patient birthdate: 1965. Age: Patient is 59year(s) old. Sex: gender: male. Study date: Study date: 11/16/2024. Study time: 01:02 PM. Patient status: Outpatient. Impressions No evidence of deep or superficial vein thrombosis involving the veins of the left upper extremity. Tables: Venous flow: + +-------+ + !Location !Overall!Flow properties ! + +-------+ + !Left internal jugular -!Patent !Phasic; spontaneous; compressible ! + +-------+ + !Left subclavian - !Patent !Phasic; spontaneous; normal augmentation; ! ! ! !compressible ! + +-------+ + !Left axillary - !Patent !Phasic; spontaneous; normal augmentation; ! ! ! !compressible ! + +-------+ + !Left brachial - !Patent !Phasic; spontaneous; normal augmentation; ! ! ! !compressible ! + +-------+ + !Left cephalic - !-------!Compressible ! + +-------+ + !Left basilic - !-------!Compressible ! + +-------+ + !Left radial - !Patent !Compressible ! + +-------+ + !Left ulnar - !Patent !Compressible ! + +-------+ + !Right subclavian - !Patent !Phasic; spontaneous; normal augmentation; ! ! ! !compressible ! + +-------+ + *Velocities are expressed in cm/s, Diameters are expressed in mm Prepared and Electronically Authenticated Antony Adame [id number] Procedure Note Antony Adame MD - 11/16/2024 [facility] Venous Exam Limited Upper Extremity Duplex Patient: Daniel Parada Study ID: [id number] Gender: M : 1965 Age: 59 Race: [place] Height Study Date: 11/16/2024 Weight: Access. #: [id number] *Referring Physician:* Chong Berger MD, Rajiv MD *Ordering Physician:* Chong Berger MD *Retail Coverage Merchandiser Lead:* Neetu Chacko RDCS, [place] History: Swelling in the left upper extremity. Study data: Study status: Routine. Left upper extremity venousduplex. Doppler flow study including spectral analysis, color and grubbs scale imaging. Birthdate: Patient birthdate: 1965. Age: Patient is 59year(s) old. Sex: gender: male. Study date: Study date: 11/16/2024. Study time: 01:02 PM. Patient status: Outpatient. Impressions No evidence of deep or superficial vein thrombosis involving the veins ofthe left upper extremity. Tables: Venous flow: + +-------+ + !Location !Overall!Flow properties! + +-------+ + !Left internal jugular -!Patent !Phasic; spontaneous; compressible! + +-------+ + !Left subclavian - !Patent !Phasic; spontaneous; normal augmentation;! ! ! !compressible! + +-------+ + !Left axillary - !Patent !Phasic; spontaneous; normal augmentation;! ! ! !compressible! + +-------+ + !Left brachial - !Patent !Phasic; spontaneous; normal augmentation;! ! ! !compressible! + +-------+ + !Left cephalic - !-------!Compressible! + +-------+ + !Left basilic - !-------!Compressible! + +-------+ + !Left radial - !Patent !Compressible! + +-------+ + !Left ulnar - !Patent !Compressible! + +-------+ + !Right subclavian - !Patent !Phasic; spontaneous; normal augmentation;! ! ! !compressible! + +-------+ + *Velocities are expressed in cm/s, Diameters are expressed in mm Prepared and Electronically Authenticated Antony Adame [id number]:01 us Chong Berger MD ORDERABLES Final Result * XR CHEST PA OR AP 1 VW (11/15/2024 10:11 AM METAL WINDOW FRAME MAKER) Anatomical Region Laterality Modality Chest Computed Radiogr aphy 11/15/2024 10:1 2 AM METAL WINDOW FRAME MAKER Impressions 11/15/2024 10:16 AM METAL WINDOW FRAME MAKER FINDINGS/IMPRESSION: A cardiac device is present with leads terminating in the right atrium and right ventricle.The lungs are clear without focal consolidation. There is no pleural effusion. No pneumothorax. The cardiomediastinal silhouette is normal. DICTATION LOCATION: Location [address] [place] [address] 11/15/2024 10:16 AM METAL WINDOW FRAME MAKER EXAMINATION: XR CHEST PA OR AP 1 VW DATE: 11/15/2024 10:11 AM HISTORY: Post-Operative; Malfunction of electrode lead of cardiac pacemaker; Cardiac pacemaker in situ; SSS (sick sinus syndrome) (CMS/HCC); Symptomatic bradycardia; Encounter for blood typing COMPARISON: No prior study is available for comparison at the time of this dictation. Chong Berger MD DIAGNOSTIC IMAGING ORDERABLES Ed ited Result - Final * PACEMAKER LEAD EXTRACTION, PACEMAKER GENERATOR CHANGE (11/15/2024 9:15 AM METAL WINDOW FRAME MAKER) 11/15/2024 7:12 AM METAL WINDOW FRAME MAKER Narrative Chong Berger MD - 11/16/2024 7:25 AM METAL WINDOW FRAME MAKER 1) Arterial line placed for the duration of the case. 2) Transvenous extraction of a RV pacing lead performed. 3) Insertion of a new RV pacing lead performed. 4) Dual-chamber PPM pulse generator replaced. 5) Temporary pacing catheter inserted for the duration of the case. Estimated Blood Loss There was minimal blood loss during procedure. Procedure Details Transvenous extraction of a RV pacing lead, implantation of a new RV pacing lead and replacement of a dual chamber PPM pulse generator Daniel Parada is a 59 y.o. male MR#: [id number] EP Physician/Implanting Physician: Chong Berger MD DATE: 11/15/2024 Allergies Allergies Allergen Reactions Pravastatin Muscle Pain Current Medications Current Facility-Administered Medications Medication Dose Route Frequency Provider Last Rate Last Admin sodium chloride 0.9 % infusion IV pre-proc continuous Chong Berger MD 30 mL/hr at 11/15/24 0635 New Bag at 11/15/24 0635 ceFAZolin (ANCEF,KEFZOL) 2,000 mg in sterile water 20 mL syringe 2,000 mg IV pre-proc one time Chong Berger MD sodium chloride 0.9% irrigation 500 mL with ceFAZolin (ANCEF,KEFZOL) 1,000 mg IRRIGATION Irrigation intra-proc ONE time Chong Berger MD lidocaine 1 % (XYLOCAINE) injection 5 mg 0.5 mL Infiltration pre-proc one time Fadia Page MD lactated ringers infusion IV continuous Fadia Page MD Pre-Procedure Diagnosis: RV lead malfunction, sick sinus syndrome/symptomatic bradycardia, status post implantation of a dual chamber pacemaker with low battery status, CAD, diabetes, peptic ulcer disease, hypertension and hyperlipidemia. Post-Procedure Diagnosis: RV lead malfunction, sick sinus syndrome/symptomatic bradycardia, status post implantation of a dual chamber pacemaker with low battery status, CAD, diabetes, peptic ulcer disease, hypertension and hyperlipidemia. Procedure Performed: 1) Arterial line placement. 2) Transvenous extraction of a RV pacing lead. 3) Insertion of a new RV pacing lead. 4) Removal of a dual-chamber PPM pulse generator. 5) Insertion of a new dual-chamber PPM pulse generator. 6) Temporary pacing catheter insertion. Brief History: Mr. Parada is a pleasant 59 y.o. male with CAD, sick sinus syndrome/symptomatic bradycardia, status post implantation of a dual Mdt pacemaker in December 2014, diabetes, peptic ulcer disease, hypertension and hyperlipidemia. He needs a left shoulder MRI. However, given increased RV pacing threshold, his pacemaker was unable to be programmed to a MRI safe mode. Recent TTE showed LVEF of 55 to 60%. He has significantly increased RV pacing threshold and given this, his pacemaker was unable to be placed in the MRI safe mode recently when he needed left shoulder surgery. Need for RV pacing remains minimal. Given this, we discussed the options including having the pacemaker programmed manually to have an MRI performed or proceeding with extraction of the lead with implant of a new lead to be able to have the MRI safely performed as well as have the ability in the future to have MRIs done as well. Possible risks/complications of lead extraction were discussed in detail including, but not limited to major vascular injury/SVC tear, cardiac perforation, need for emergent cardiac surgery/blood transfusion, damage to tricuspid valve, damage to atrial lead requiring revision/replacement, deep vein thrombosis/pulmonary embolism, adverse reaction to medications/anesthesia/sedation, esophageal injury from intraoperative WILLIAM as well as possible . After discussing these issues in detail, he understood and wanted to proceed with RV lead extraction with replacement. Also, given low PG battery status with estimated only 1.5 years left, PG will be replaced as well. He now presents for this procedure. Procedure: The patient was explained about the nature of the procedure: i.e., RV lead extraction with implantation of a new lead and replacement of pacemaker pulse generator. The indications, specific risks and complications were discussed in detail. The specific risks included, but were not limited to, major vascular injury/SVC tear, cardiac perforation, need for emergent cardiac surgery/blood transfusion, damage to tricuspid valve, damage to atrial lead requiring revision/replacement, deep vein thrombosis/pulmonary embolism, adverse reaction to medications/anesthesia/sedation, esophageal injury from intraoperative WILLIAM as well as possible . He understood these complications very well and agreed to proceed with the planned procedure. After obtaining informed consent, the patient was transferred to the Electrophysiology Lab in the post-prandial fasting state. IV Ancef was used for antibiotic prophylaxis. General anesthesia was administered and intraoperative WILLIAM was performed. Both groins were prepped and draped in the usual sterile fashion. 2% Xylocaine was locally injected in the right groin. One 6-F and one 7-F sheath were placed in the right femoral vein. Through the 7-F sheath using fluoroscopy, a standard 6 Fr diagnostic quadripolar EP catheter was advanced and positioned at the right ventricular apex. Acceptable pacing threshold was obtained. Through the 6- F sheath, a 260 cm long super stiff 0.035 inch guidewire was passed up to the right IJ vein in preparation to deploy the Swapdom Bridge SVC occlusion balloon if needed in case of a SVC tear. The guidewire was then secured in place. A 4F sheath was placed in the right femoral artery. The arterial line was placed to monitor the patient's arterial blood pressure during the lead extraction process. The sheaths were then secured in place. Next, the chest was prepped and draped in sterile fashion. 2% Xylocaine was used to create an area of local anesthesia over the old incision site in the left pectoral location. This site was opened up and dissection was carried down to the existing DC PPM PG, Medtronic Advisa model # A2DR01 serial # [id number]. Hemostasis was secured using electrocautery. The posterior capsule was removed until bleeding muscle was encountered. The PG was explanted and disconnected from the chronic leads: Atrial lead, Medtronic, bipolar, active fixation, model # 5076, serial # [id number] (45 cm in length) and right ventricular lead, Medtronic, bipolar, active fixation, model # 5076, serial # [id number]. The PG and leads were implanted on 01/01/2015. The leads were attached to a pacemaker system analyzer. Atrial pacing threshold was 0.5 volt at 0.4 millisecond pulse duration; pacing impedence was 372 ohms. Intracardiac P- wave amplitude was 3.0 millivolts. Ventricular pacing threshold was 2.0 volts at 1.5 millisecond pulse duration. Pacing impedence was 1882 ohms. Intracardiac R-wave amplitude was 8.5 millivolts. The fibrosis around the leads was dissected and the suture sleeves were identified. The sutures around the RV lead were cut away.The screw helix could not be retracted back. The artery lead was then prepared for extraction. The lead was cut in the pocket and the inner pacing lumen was exposed. A standard length Swapdom EZ LLD locking stylet was introduced down the inner pacing lumen and locked at the tip of the lead. A 0 silk suture was tied around the outer insulation of the lead. The suture was then passed through the eye of the locking stylet. Over this was passed a XZERES Laser sheath, size 14 Fr. Using steady manual tug on the lead and lasing at 80 Hz, the extraction process was begun. There was dense fibrosis encountered in the left innominate vein, SVC and right ventricle. The fibrous tissue was gradually dissected away. Once this was done, the lead came loose and was removed as one fragment without leaving any fragments behind. Post extraction, the cardio phrenic and costo-phrenic angles were clear. There was no mediastinal widening noted. The patients blood pressure remained stable during the lead extraction process. WILLIAM showed no pericardial effusion. The lead was removed with the extraction sheath. Atrial lead function was normal after RV lead extraction and this lead was not replaced. Next, under fluoroscopy, access was obtained via a puncture in the left axillary vein. Modified Seldinger technique was used. After documenting the proper position of the needle by aspiration of venous blood, a 60 cm J-tipped, 0.035-inch diameter, guidewire was advanced through the needle into the left axillary vein and then into the right atrium. A 7.0 Greenlandic vessel dilator/sheath assembly was advanced over the guidewire into the axillary vein and the guidewire was removed. From with the sheath, a Medtronic pace/sense lead, Capsure Fix Novus, bipolar, active fixation, model # 5076, serial # [id number] (58 cm in length), was advanced to the RVOT and then dropped to the lower interventricular septum and the helix screwed out. The lead was tested with a pacemaker system analyzer. Ventricular pacing threshold was 0.5 volt at a 0.4 millisecond pulse duration. Pacing impedance was 779 ohms. Intracardiac R wave amplitude was 9.0 millivolts. Diaphragmatic stimulation could not be induced with a 10 volt pacing stimulus. The sheath was then peeled away. The RV lead was then secured using a 0-Ethibond suture around the suture sleeve. Both leads were attached to a new PPM PG, DiscoveRX More XT DR, model # W1DR01, serial # [id number], which was programmed to the following parameters: Mode: AAI/DDD Programmed: 50 ppm Upper Tracking Rate: 130 ppm A-V Delay: 270/240 ms Atrial Settings Ventricular Settings Output Amplitude: 1.5 Volts 3.5 Volts Pulse Duration: 0.4 ms 0.4 ms Sensitivity: 0.3 mV 1.20 mV The PPM was placed into a DiscoveRX Tyrx antibacterial envelope and then in the pocket. It was noted to be pacing and sensing in normal function. Care was taken to position the leads behind the PPM. The pocket was copiously irrigated with Ancef antibiotic solution. The deep layer was closed using a 2.0 vicryl suture in a running fashion and the skin was closed using a 4.0 Vicryl in a subcuticular fashion. The wound was covered with steri-strips and an occlusive Aquacel dressing. The temporary pacing catheter and guidewire from the groin were removed under fluoroscopy. All the sheaths were removed as well and hemostasis was achieved with manual groin compression. The patient tolerated the procedure well with an estimated blood loss of 30-40 cc. Post procedure chest x-ray will be obtained. Routine pain medications were ordered for the patient. Needle and sponge counts were accurate at the end of the case. No complications were seen. A left arm sling was applied and he was transferred to the recovery room in stable condition. Impression: 1) Arterial line placed for the duration of the case. 2) Transvenous extraction of a RV pacing lead performed. 3) Insertion of a new RV pacing lead performed. 4) Dual-chamber PPM pulse generator replaced. 5) Temporary pacing catheter inserted for the duration of the case. Post Procedure: 1) Bed rest for 3 hours. 2) Routine pain medications. 3) Vital signs per nursing protocol. 4) Maintain sling to the left arm. 5) Single view- CXR today. 6) Standard PPM teaching will be performed. 7) Routine follow-up appointments will be made. 8) Watch the right groin for bleeding. Procedural Indications RV lead malfunction, sick sinus syndrome/symptomatic bradycardia and status post implantation of a dual chamber pacemaker with low battery status. us Chong Berger MD CUP EP ORDERABLES Final Result * (ABNORMAL) POC GLUCOSE (11/15/2024 6:35 AM METAL WINDOW FRAME MAKER) GLUCOSE POC 163(H) 74 - 99 mg/dL 11/15/2024 6:35 AM METAL WINDOW FRAME MAKER [facility] POINT OF CARE SPECIMEN SOURCE, GLUCOSE POC Whole Blood 11/15/2024 6:35 AM METAL WINDOW FRAME MAKER [facility] POINT OF CARE Blood, whole 11/15/2024 6:35 AM METAL WINDOW FRAME MAKER 11/15/2024 6:43 AM METAL WINDOW FRAME MAKER us Chong Berger MD POINT OF CARE TESTING Final Resu lt Performing Organization Address City/[facility]/ZIP Co de Phone Number [facility] POINT OF CARE CLIA # [id number] [place] [address] * VERIFICATION BLOOD GROUP (11/15/2024 6:34 AM METAL WINDOW FRAME MAKER) ABO GROUP A 11/15/2024 6:51 AM METAL WINDOW FRAME MAKER [facility] RH (D) TYPE Positive 11/15/2024 6:51 AM METAL WINDOW FRAME MAKER [facility] [employer] [facility] Blood Venipuncture / Unknown 11/15/2024 6:34 AM METAL WINDOW FRAME MAKER 11/15/2024 6:34 AM METAL WINDOW FRAME MAKER us Chong Berger MD BLOOD BANK ORDERABLES Final Resu lt [facility] CLIA# [id number] [place] [address] * PREPARE RED BLOOD CELLS (11/15/2024 6:20 AM METAL WINDOW FRAME MAKER) Only the most recent of4 resultswithin the time period is included. COMPONENT TYPE [id number] [facility] COMPONENT IDENTIFICATION [id number]-* [facility] UNIT ABO A [facility] UNIT RH POS [facility] CROSSMATCH Compatible [facility] COMPONENT STATUS Returned [facility] - [facility] COMPONENT EXPIRATION DATE/TIME [id number] [facility] COMPONENT CODING SYSTEM 6200 [facility] VOLUME, BLOOD PRODUCT 350 [facility] 11/15/2024 6:20 AM METAL WINDOW FRAME MAKER us Chong Berger MD LAB TRANSFUSION ORDERABLES Edite d Result - Final [facility] CLIA# [id number] [address] [place] [address] * EKG 12-LEAD (10/30/2024 9:29 AM METAL WINDOW FRAME MAKER) 10/30/2024 9:29 AM METAL WINDOW FRAME MAKER Narrative INTERFACE SYSTEM - 10/30/2024 9:43 AM METAL WINDOW FRAME MAKER [address] [address] Test Date: 2024-10-30 Pat Name: DANIEL CROWELLPAO Department: 60 Room: Gender: Male Corporate Safety Director: : 1965 Requested By: CHONG BERGER Order Number: [id number] Reading MD: Shant Bryant Measurements Intervals Wing Rate: 50 P: -3 MA: 204 QRS: 48 QRSD: 84 T: 55 QT: 416 QTc: 379 Interpretive Statements Atrial-paced rhythm Abnormal ECG No previous ECG available for comparison Electronically Signed On 10-30-2024 9:43:01 METAL WINDOW FRAME MAKER by Shant Bryant Procedure Note Shant Bryant MD - 10/30/[address] [address] Test Date: 2024-10-30 Pat Name: DANIEL PARADA Department: 60 Room: Gender: Male Corporate Safety Director: RANDY : 1965 Requested By: CHONG BERGER Order Number: [id number] Reading MD: Shant Bryant Measurements Intervals Wing Rate: 50 P: -3 MA: 204 QRS: 48 QRSD: 84 T: 55 QT: 416 QTc: 379 Interpretive Statements Atrial-paced rhythm Abnormal ECG No previous ECG available for comparison Electronically Signed On 10-30-2024 9:43:01 METAL WINDOW FRAME MAKER by Shant Bryant Fadia Page MD ECG ORDERABLES Final Result INTERFACE SYSTEM Refer to clinic/hospital department * (ABNORMAL) CBC WITH DIFFERENTIAL (10/30/2024 9:12 AM METAL WINDOW FRAME MAKER) WBC 6.1 4.0 - 9.8 K/uL 10/30/2024 10:50 AM METAL WINDOW FRAME MAKER [facility] RBC 5.44(H) 4.50 - 5.40 M/uL 10/30/2024 10:50 AM [facility] HEMOGLOBIN 16.1 13.6 - 16.5 g/dL 10/30/2024 10:50 AM METAL WINDOW FRAME MAKER [facility] HEMATOCRIT 46.4 40.0 - 48.0 % 10/30/2024 10:50 AM METAL WINDOW FRAME MAKER [facility] MCV 85.3 82.0 - 99.0 fL 10/30/2024 10:50 AM METAL WINDOW FRAME MAKER [facility] MCH 29.6 27.2 - 32.6 pg 10/30/2024 10:50 AM METAL WINDOW FRAME MAKER [facility] MCHC 34.7 31.5 - 35.5 g/dL 10/30/2024 10:50 AM METAL WINDOW FRAME MAKER [facility] RDW 12.1 11.5 - 14.5 % 10/30/2024 10:50 AM METAL WINDOW FRAME MAKER [facility] RDW-STDEV 37.1 37.1 - 48.7 fL 10/30/2024 10:50 AM METAL WINDOW FRAME MAKER [facility] PLATELETS 155 140 - 350 K/uL 10/30/2024 10:50 AM METAL WINDOW FRAME MAKER [facility] MPV 9.0(L) 9.3 - 12.4 fL 10/30/2024 10:50 AM METAL WINDOW FRAME MAKER [facility] NEUTROPHILS 64 % 10/30/2024 10:50 AM METAL WINDOW FRAME MAKER [facility] LYMPHOCYTES 24 % 10/30/2024 10:50 AM METAL WINDOW FRAME MAKER [facility] MONOCYTES 10 % 10/30/2024 10:50 AM METAL WINDOW FRAME MAKER [facility] EOSINOPHILS 2 % 10/30/2024 10:50 AM METAL WINDOW FRAME MAKER [facility] BASOPHILS 1 % 10/30/2024 10:50 AM METAL WINDOW FRAME MAKER [facility] IMMATURE GRANULOCYTES 0 % 10/30/2024 10:50 AM METAL WINDOW FRAME MAKER [facility] NEUTROPHIL ABSOLUTE 3.90 1.90 - 7.00 K/uL 10/30/2024 10:50 AM METAL WINDOW FRAME MAKER [facility] LYMPHOCYTE ABSOLUTE 1.46 0.70 - 4.50 K/uL 10/30/2024 10:50 AM METAL WINDOW FRAME MAKER [facility] MONOCYTE ABSOLUTE 0.59 0.10 - 1.30 K/uL 10/30/2024 10:50 AM METAL WINDOW FRAME MAKER [facility] EOSINOPHIL ABSOLUTE 0.10 0.00 - 0.70 K/uL 10/30/2024 10:50 AM METAL WINDOW FRAME MAKER [facility] BASOPHILS ABSOLUTE 0.05 0.00 - 0.20 K/uL 10/30/2024 10:50 AM METAL WINDOW FRAME MAKER [facility] IMMATURE GRANULOCYTES ABSOLUTE 0.02 0.00 - 0.03 K/uL 10/30/2024 10:50 AM METAL WINDOW FRAME MAKER [facility] Blood Venipuncture / Unknown 10/30/2024 9:12 AM METAL WINDOW FRAME MAKER 10/30/2024 10:50 AM METAL WINDOW FRAME MAKER us Chong Berger MD HEMATOLOGY ORDERABLES Final Resu lt [facility] CLIA# [id number] [address] [place] [address] * TYPE AND SCREEN (10/30/2024 9:12 AM METAL WINDOW FRAME MAKER) Pathologist [facility] ABO GROUP A 10/30/2024 11:52 AM [facility] RH (D) TYPE Positive 10/30/2024 11:52 AM [facility] ANTIBODY SCREEN Negative 11:52 AM [facility] [employer] [facility] Comment:TYPE AND SCREEN EXTE NDED UNTIL 11/18/2024. VERIFICATION ORDERED. Blood Venipuncture / Unknown 10/30/2024 9:12 AM METAL WINDOW FRAME MAKER 10/30/2024 10:42 AM METAL WINDOW FRAME MAKER us Chong Berger MD BLOOD BANK ORDERABLES Edited Res ult - Final [facility] CLIA# [id number] [address] [place] [address] * (ABNORMAL) BASIC METABOLIC PANEL (10/30/2024 9:12 AM METAL WINDOW FRAME MAKER) Pathologist [facility] SODIUM 136 136 - 145 mmol/L 10/30/2024 11:17 AM [facility] POTASSIUM 3.8 3.4 - 5.1 mmol/L 10/30/2024 11:17 AM [facility] CHLORIDE 101 98 - 107 mmol/L 10/30/2024 11:17 AM [facility] CO2 22 22 - 29 mmol/L 10/30/2024 11:17 AM [facility] CALCIUM 9.9 8.6 - 10.4 mg/dL 10/30/2024 11:17 AM [facility] BUN 26(H) 6 - 20 mg/dL 10/30/2024 11:17 AM [facility] CREATININE 1.09 0.67 - 1.17 mg/dL 10/30/2024 11:17 AM [facility] GLUCOSE 106(H) 74 - 99 mg/dL 10/30/2024 11:17 AM [facility] GFR >60 >=60 mL/min/1.7 3 sq meter 10/30/2024 11:17 AM [facility] Comment:eGFR calculated with 2020 CKD-EPI equation. Vegetarian diet, extremely high or low muscle mass, and may affect results. Cystatin C with Glomerular Filtration Rate is a suitable alternative for these patients. ANION GAP 13 8 - 16 mmol/L 10/30/2024 11:17 AM [facility] Blood Venipuncture / Unknown 10/30/2024 9:12 AM METAL WINDOW FRAME MAKER 10/30/2024 10:48 AM METAL WINDOW FRAME MAKER us Chong Berger MD CHEMISTRY ORDERABLES Final Resul t [facility] CLIA# [id number] [address] [place] [address] from Last 3 Months Insurance [facility] OPTIONS PPO [id number] RX [employer] RX Member Subscriber Plan / Payer (Ef fective 2024-Present) Name:DaliamayiDaniel Relation to Subscriber:Self Name:Daniel Parada Subscriber ID:Not on file Payer ID:Not on file Type:Not on file Address: [address] [employer] Advance Directives For more information, please contact: [phone] Documents on File Type Date Recorded Patient Team Primary Care Physician Expl anation Advance Directive POA 10/30/2024 7:59 AM A dvance Directive POA * Full Code (Latest Code Status on File) Date Activated Date Inactivated Comments 11/15/2024 9:44 AM 11/15/2024 5:15 PM
--- OUTSIDE RECORDS SUMMARY | 2024-11-26 11:57 | XMS_ITS | Encounter Summary ---
Author Organization [facility] Address [address] [place] [address] Care Team Providers Care Fuel Distribution System Operator Name Role Phone Pablo Villanueva MD Unavailable [phone] Pina Weaver DISINTEGRATOR OPERATOR Primary Care Provider Unav ailable Lyla Zendejas MD Primary Care Provider [phone] Conrad Pradhan MD Primary Care Provider [phone] Joseline Juarez NP Primary Care Provider [phone] Encounter Details Date Type Department Care Team (Late st Contact Info) Description 04/03/2021 Reacción Message Enc [facility] [address] [place], [facility] Provider RE: In Clinic Device Evaluation Social History Tobacco Use Types Packs/Day Years [...] 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 [facility] [address] [place], [place] [address] 02/18/2025 2:15 PM CDT [facility] [address] [place] [address] Pablo Villanueva MD [facility]. [facility] [address] [place], [place] [address] documented as of this encounter Visit Diagnoses Not on filedocumented in this encounter Care Teams Fuel Distribution System Operator Relationship Specialty Start Date End Date Pina Weaver NP [facility] [address] [place] [address] PCP - General NURSE PRACTITIONER 05/10/18 08/12/21 [place] Zendejas [place] [id number] [place] [id number] PCP - General FAMILY PRACTICE 08/13/21 12/07/21 [place] [address] [place] [address] PCP - General FAMILY PRACTICE 12/08/21 10/09/22 Joseline Juarez NP [address] [facility] [address] [place] [address] PCP - General NURSE PRACTITIONER 10/10/22 Pablo Villanueva MD [address] [address] [place] Wrecking Crane Engine Operator CARDIOVASCULAR DISEASE 03/10/16 documented as of this encounter
--- OUTSIDE RECORDS SUMMARY | 2024-11-26 11:57 | XMS_ITS | Encounter Summary ---
Author Organization [facility] Address [address] [place] [address] Care Team Providers Care Director Of Community Life Name Role Phone Pablo Villanueva MD Unavailable [phone] Conrad Pradhan MD Primary Care Provider [phone] Joseline Juarez NP Primary Care Provider [phone] Encounter Details Date Type Department Care Team (Late st Contact Info) Description 02/01/2022 Springbukt Message [facility] [id number] [place] [phone] Pablo Villanueva MD [address] [address] Sleep study results Social History Tobacco Use Types Packs/Day [...] 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 No / Unsure 02/03/2022 8:06 PM CDT documented as of this encounter Plan of Treatment Upcoming Encounters Date Type Department Care Team (Late st Contact Info) Description 12/03/2024 1:00 PM BOROUGH COORDINATOR Allied Health/Nurse Visit [address] [phone] Pablo Villanueva MD [address] [address] 01/17/2025 9:45 AM CDT Office Visit [address] [phone] Pablo Villanueva MD [address] [address] 02/18/2025 2:15 PM CDT Allied Health/Nurse Visit [facility], [address] [address] Pablo Villanueva MD [address] [phone] documented as of this encounter Visit Diagnoses Not on filedocumented in this encounter Additional Health Concerns Assessment Noted Time PHQ-9 Depression Total Score: 0 08/13/20 21 7:05 AM CDT documented as of this encounter Care Teams Director Of Community Life Relationship Specialty Start Date End Date Conrad Pradhan MD Three [facility]. [address] [address] PCP - General FAMILY PRACTICE 12/08/21 10/09/22 Joseline Juarez NP [address] [facility] [address] [place], [place] [address] PCP - General NURSE PRACTITIONER 10/10/22 Pablo Villanueva MD Three [facility]. [facility] [address] [place] [address] CARDIOVASCULAR DISEASE 03/10/16 documented as of this encounter
--- OUTSIDE RECORDS SUMMARY | 2024-11-26 11:57 | XMS_ITS | Encounter Summary ---
Author Organization [facility] Address [address] [place] [address] Care Team Providers Care Structural Steel Worker Apprentice Name Role Phone Pablo iVllanueva MD Unavailable [phone] Pina Weaver CLINICAL ATHLETIC INSTRUCTOR Primary Care Provider Unav eleazarable Lyla Zendejas MD Primary Care Provider [phone] Conrad Pradhan MD Primary Care Provider [phone] Joseline Juarez NP Primary Care Provider [phone] Encounter Details Date Type Department Care Team (Late st Contact Info) Description 09/22/2020 Sakhr Software Message Enc [facility] [address] [place], [facility] Provider Yearly device check at [place] [facility] Social History Tobacco Use Types Packs/Day Years [...] 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 Unable to assess 09/22/2020 4:15 PM HEAVY EQUIPMENT OPERATOR documented as of this encounter Plan of Treatment Upcoming Encounters Date Type Department Care Team (Late st Contact Info) Description 12/03/2024 1:00 PM HEAVY EQUIPMENT OPERATOR Allied Health/Nurse Visit [facility] [address] [phone] Pablo Villanueva MD [facility]. [address] [address] 01/17/2025 9:45 AM CDT Office Visit [address] [phone] Pablo Villanueva MD [facility]. [facility] [address] [place], [place] [address] 02/18/2025 2:15 PM CDT Allied Health[facility] [address] [place] [address] Pablo Villanueva MD [facility]. [facility] [address] [place], [place] [address] documented as of this encounter Visit Diagnoses Not on filedocumented in this encounter Care Teams Structural Steel Worker Apprentice Relationship Specialty Start Date End Date Pina Weaver NP [facility]. [facility] [address] [place] [address] PCP - General NURSE PRACTITIONER 05/10/18 08/12/21 [place] [address] [place] [address] PCP - General FAMILY PRACTICE 08/13/21 12/07/21 [place] [address] [place] [address] PCP - General FAMILY PRACTICE 12/08/21 10/09/22 Joseline Juarez NP [address] [place] [address] [address] [place] [address] PCP - General NURSE PRACTITIONER 10/10/22 Pablo Villanueva MD Three [facility]. [address] [address] Anne Lockstitch Tunnel Elastic Operator CARDIOVASCULAR DISEASE 03/10/16 documented as of this encounter
--- OUTSIDE RECORDS SUMMARY | 2024-11-26 11:57 | XMS_ITS | Encounter Summary ---
Author Organization [facility] Address [address] [place] [address] Care Team Providers Care Ophthalmology Surgical Technician Name Role Phone Fabiola Haddad APGANGA Primary Care Provider Unava ilPablo Parisi MD Unavailable [phone] Pina Weaver UPHOLSTERER INSIDE Primary Care Provider Unav Lyla Mora MD Primary Care Provider [phone] Conrad Pradhan MD Primary Care Provider [phone] Joseline Juarez UPHOLSTERER INSIDE Primary Care Provider [phone] Encounter Details Date Type Department Care Team (Late st Contact Info) Description 08/13/2017 [place] [address] , Generic Conversion, Social History Tobacco Use Types Packs/Day Years [...] 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. [facility] [address] [place] [address] 01/17/2025 9:45 AM CDT Office Visit [facility] [address] [place] [phone] Pablo Villanueva MD [facility]. [facility] [address] [place], [place] [address] 02/18/2025 2:15 PM CDT [facility] [address] [place] [address] Pablo Villanueva MD [facility]. [facility] [address] [place] [address] documented as of this encounter Visit Diagnoses Not on filedocumented in this encounter Care Teams Ophthalmology Surgical Technician Relationship Specialty Start Date End Date Fabiola Haddad APNP PCP - General PRESS OPERATOR APPRENTICE 03/10/16 05/09/18 Pina Weaver NP [facility]. [facility] [address] [place] [address] PCP - General NURSE PRACTITIONER 05/10/18 08/12/21 [place] [address] [place] [address] PCP - General FAMILY PRACTICE 08/13/21 12/07/21 [place] [address] [place], [place] [id number] PCP - General FAMILY PRACTICE 12/08/21 10/09/22 Joseline Juarez NP [address] [facility] [address] [place], [place] [address] PCP - General NURSE PRACTITIONER 10/10/22 Pablo Villanueva MD Three [facility]. [address] [address] Stanley Pan Greaser CARDIOVASCULAR DISEASE 03/10/16 documented as of this encounter
--- OUTSIDE RECORDS SUMMARY | 2024-11-26 11:57 | XMS_ITS | Encounter Summary ---
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 No / Unsure 01/21/2022 10:13 AM CDT documented as of this encounter Plan of Treatment Upcoming Encounters Date Type Department Care Team (Late st Contact Info) Description 12/03/2024 1:00 PM STUDENT SPECIALIST Allied Health/Nurse Visit [facility] [address] [phone] Pablo Villanueva MD [address] [address]67[address] 01/17/2025 9:45 AM CDT Office Visit [address] [phone] Pablo Villanueva MD [address] [phone] 02/18/2025 2:15 PM CDT [facility] Health[facility] [address] [address] Pablo Villanueva MD [facility] [address] [place], [place] [address] documented as of this encounter Visit Diagnoses Not on filedocumented in this encounter Additional Health Concerns Assessment Noted Time PHQ-9 Depression Total Score: 0 08/13/20 21 7:05 AM CDT documented as of this encounter Care Teams Gun Synchronizer Relationship Specialty Start Date End Date Conrad Pradhan MD [facility] [address] [place] [address] PCP - General FAMILY PRACTICE 12/08/21 10/09/22 Joseline Juarez NP [address] [facility] [address] [place], [place] [address] PCP - General NURSE PRACTITIONER 10/10/22 Pablo Villanueva MD [facility]. [address] [address] Anne Account Executive Metalworking CARDIOVASCULAR DISEASE 03/10/16 documented as of this encounter
--- OUTSIDE RECORDS SUMMARY | 2024-11-26 11:57 | XMS_ITS | Encounter Summary ---
Author Organization [facility] Address [address] [place] [address] Care Team Providers Care Body Line Finisher Name Role Phone Pablo Villanueva MD Unavailable [phone] Pina Weaver WASHER AND CAPPER MACHINE OPERATOR Primary Care Provider Unav eleazarable Lyla Zendejas MD Primary Care Provider [phone] Conrad Pradhan MD Primary Care Provider [phone] Joseline Juarez NP Primary Care Provider [phone] Encounter Details Date Type Department Care Team (Late st Contact Info) Description 01/01/2021 MyChart Message Enc [facility]Rhona pedro [address] [address] [place], [facility] Provider Carelink Transmission received and next transmission date Social History Tobacco Use Types Packs/Day Years [...] 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 Unable to assess 12/31/2020 9:45 AM CDT documented as of this encounter Plan of Treatment Upcoming Encounters Date Type Department Care Team (Late st Contact Info) Description 12/03/2024 1:00 PM PRESIDENT COMMERCIAL BANK Allied Health/Nurse Visit [address] [phone] Pabol Villanueva MD [facility]. [address] [address] 01/17/2025 9:45 AM CDT Office Visit [address] [phone] Pablo Villanueva MD [facility]. [address] [address]79[address] 02/18/2025 2:15 PM CDT [facility] Health[facility] [address] [address] Pablo Villanueva MD [facility]. [address] [address] documented as of this encounter Visit Diagnoses Not on filedocumented in this encounter Care Teams Body Line Finisher Relationship Specialty Start Date End Date Pina Weaver NP [facility]. [place] [address] [place] [address] PCP - General NURSE PRACTITIONER 8/1/18 11/3/21 [place] [address] [place] [address] PCP - General FAMILY PRACTICE 08/13/21 12/07/21 [place] [address] [place] [address] PCP - General FAMILY PRACTICE 12/08/21 10/09/22 Joseline Juarez NP [address] [place] [address] [address] [place], [place] [address] PCP - General NURSE PRACTITIONER 10/10/22 Pablo Villanueva MD Three [facility]. [place] [address] [place] [address] Anne Safety And Skill Based Pay Manager CARDIOVASCULAR DISEASE 03/10/16 documented as of this encounter
--- OUTSIDE RECORDS SUMMARY | 2024-11-26 11:57 | XMS_ITS | Encounter Summary ---
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 file Not [...] st Contact Info) Description 12/03/2024 1:00 PM HIDE PASTER Allied Health/Nurse Visit [facility] [address] [phone] Pablo Villanueva MD [address] [address] 01/17/2025 9:45 AM CDT Office Visit [address] [phone] Pablo Villanueva MD [address] [phone] 02/18/2025 2:15 PM CDT [facility] [address] [address] Pablo Villanueva MD [facility] [address] [place], [place] [address] documented as of this encounter Visit Diagnoses Not on filedocumented in this encounter Additional Health Concerns Assessment Noted Time PHQ-9 Depression Total Score: 0 08/13/20 21 7:05 AM CDT documented as of this encounter Care Teams Service Order Clerk Relationship Specialty Start Date End Date Conrad Pradhan MD [facility] [address] [place] [address] PCP - General FAMILY PRACTICE 12/08/21 10/09/22 Joseline Juarez NP 3417 [facility] [address] [place], [place] [id number] PCP - General NURSE PRACTITIONER 10/10/22 Pablo Villanueva MD [facility]. [address] [address] Anne Circulating Process Inspector CARDIOVASCULAR DISEASE 03/10/16 documented as of this encounter
--- OUTSIDE RECORDS SUMMARY | 2024-11-26 11:57 | XMS_ITS | Encounter Summary ---
Author Organization [facility] Address [address] [place] [address] Care Team Providers Care Chief Reservoir Engineering Name Role Phone CatieFabiola de la rosa FANNIE Primary Care Provider Unava ilable Pablo Villanueva MD Unavailable [phone] Pina Weaver SCHOOL PHYSICAL THERAPIST Primary Care Provider Unav ailable Lyla Zendejas MD Primary Care Provider [phone] Conrad Pradhan MD Primary Care Provider [phone] Joseline Juarez SCHOOL PHYSICAL THERAPIST Primary Care Provider [phone] Encounter Details Date Type Department Care Team (Late st Contact Info) Description 08/04/2016 Abstract [facility] [address] [address] Scarlett Adams MA Social History Tobacco Use Types Packs/Day Years Used Date Smoking Tobacco: Never Sex and Gender Information Value Date Recorded Sex Assigned at Male 04/05/2019 4:16 PM CDT Legal Sex Male 11:24 PM CDT Gender Identity Male 04/05/2019 4:16 PM CDT Sexual Orientation Straight 04/05/2019 4: 16 PM CDT documented as of this encounter Progress Notes * Yadi Juarez, BABAR-BC - 08/11/2016 4:03 PM CDT Please see above note,from 08/06 D/c lovastatin. Send script for Crestor 2omg daily to pharmacy * EVERARDO Pennington - 08/06/2016 1:33 PM CDT Please send 90 day script for Crestor 20mg to pharmacy. D/c lovastatin documented in this encounter Plan of Treatment Upcoming Encounters Date Type Department Care Team (Late st Contact Info) Description 12/03/2024 1:00 PM EQUITY MANAGER Allied Health/Nurse Visit [facility] [address] [phone] Pablo Villanueva MD [facility]. [facility] [address] [place] [address] 01/17/2025 9:45 AM CDT Office Visit [facility] [address] [place] [phone] Pablo Villanueva MD [facility]. [place] [address] [place] [address] 02/18/2025 2:15 PM CDT [facility] [place] [address] [place] [address] Pablo Villanueva MD [facility]. [place] [address] [place] [address] documented as of this encounter Procedures Procedure Name Priority Date/Time Associated Diagnosis Comments COMPREHENSIVE METABOLIC PANEL Routine 03/22/2023 LIPID PANEL Routine 03/22/2023 CBC (OUTSIDE LAB) Routine 08/02/2016 COMPREHENSIVE METABOLIC PANEL Routine 08/02/2016 LIPID PANEL Routine 08/02/2016 CK (CPK) Routine 08/02/2016 documented in this encounter Results * COMPREHENSIVE METABOLIC PANEL (03/22/2023) GLUCOSE 100 mg/dL Narrative Resulting Agency Comment us Default History Genericprovider LABORATORY Final Result * LIPID PANEL (03/22/2023) CHOLESTEROL 118 TRIGLYCERIDES 111 HDL 43 LDL (CALCULATED) 56 NON HDL CHOLESTEROL 75 Narrative Resulting Agency Comment us Default History Genericprovider LABORATORY Final Result * CK (CPK) (08/02/2016) CPK 37 08/02/2016 us Doc [facility] Abstract LABORATORY Edited Resul t - Final * CBC (OUTSIDE LAB) (08/02/2016) WBC 5.4 HGB 15.2 HCT 45.4 PLT 195 08/02/2016 us Doc [facility] Abstract LAB-OUTSIDE/ABSTRACTED Final Result * COMPREHENSIVE METABOLIC PANEL (08/02/2016) SODIUM S/P/B 138 POTASSIUM S/P/B 4.2 CO2 28 CHLORIDE S/P/B 103 GLUCOSE 110 CALCIUM S/P/B 9.4 BUN 21 CREATININE S/P/B 1.03 EGFR AFR. AMER. 96 EGFR NON-AFR. AMER. 83 ALKALINE PHOSPHATASE S/P/B 63 ALT 16 AST 13 BILIRUBIN TOTAL S/P/B 0.5 ALBUMIN S/P/B 4.5 3.5 - 5.0 TOTAL PROTEIN S/P/B 6.7 GLOBULIN 2.2 08/02/2016 us Doc [facility] Abstract LABORATORY Final Result * LIPID PANEL (08/02/2016) CHOLESTEROL 204 HDL 44 TRIGLYCERIDES 157 NON HDL CHOLESTEROL 160 DIRECT LDL 133 08/02/2016 us Doc [facility] Abstract LABORATORY Edited Resul t - Final documented in this encounter Visit Diagnoses Not on filedocumented in this encounter Care Teams Chief Reservoir Engineering Relationship Specialty Start Date End Date Fabiola Haddad APNP PCP - General OPERATIONS STAFF SPECIALIST SECURITY 03/10/16 05/09/18 Pina Weaver NP Three [facility]. [place] [address] [place] [address] PCP - General NURSE PRACTITIONER 05/10/18 08/12/21 [place] [address] [place] [address] PCP - General FAMILY PRACTICE 08/13/21 12/07/21 [place] [address] [place] [address] PCP - General FAMILY PRACTICE 12/08/21 10/09/22 Joseline Juarez NP [address] [facility] [address] [place] [address] PCP - General NURSE PRACTITIONER 10/10/22 Pablo Vill[facility]ueva MD Three [facility] [place] [address] [place] [address] Anne Charge Entry CARDIOVASCULAR DISEASE 03/10/16 documented as of this encounter
--- OUTSIDE RECORDS SUMMARY | 2024-11-26 11:57 | XMS_ITS | Encounter Summary ---
Author Organization [facility] Address [address] [place] [address] Care Team Providers Care Reaming Press Operator Name Role Phone Pablo Villanuvea MD Unavailable [phone] Joseline Juarez NP Primary Care Provider [phone] Encounter Details Date Type Department Care Team (Late st Contact Info) Description 09/03/2024 [place] Message [facility] [id number] [place] [phone] Pablo Villanueva MD [address] [address] medical clearance for eye surgery Social History Tobacco Use Types Packs/Day Years [...] 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 [facility] [address] [place], [place] [address] 02/18/2025 2:15 PM CDT [facility], [facility] [address] [place], [place] [address] Pablo Villanueva MD [facility]. [address] [address] documented as of this encounter Visit Diagnoses Not on filedocumented in this encounter Additional Health Concerns Assessment Noted Time PHQ-9 Depression Total Score: 0 08/13/20 21 7:05 AM CDT documented as of this encounter Care Teams Reaming Press Operator Relationship Specialty Start Date End Date Joseline Juarez NP [facility] [address] [place], [place] [address] PCP - General NURSE PRACTITIONER 10/10/22 Pablo Villanueva MD Three [facility]. [address] [address] Anne Marketing And Communications Officer CARDIOVASCULAR DISEASE 03/10/16 documented as of this encounter
--- OUTSIDE RECORDS SUMMARY | 2024-11-26 11:57 | XMS_ITS | Encounter Summary ---
Author Organization [facility] Address [address] [place] [address] Care Team Providers Care Plant Operator/Shift Supervisor Name Role Phone Pablo Villauneva MD Unavailable [phone] Pina Weaver MOTO MIX OPERATOR Primary Care Provider Unav eleazarable Lyla Zendejas MD Primary Care Provider [phone] Conrad Pradhan MD Primary Care Provider [phone] Joseline Juarez NP Primary Care Provider [phone] Encounter Details Date Type Department Care Team (Late st Contact Info) Description 09/12/2020 [facility] [employer] Message Enc [facility] [facility] [address] [address] [facility] Provider Missed Carelink Transmission Social History Tobacco Use Types Packs/Day Years [...] 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 No / Unsure 09/10/2020 6:54 AM HAY CHOPPER documented as of this encounter Plan of Treatment Upcoming Encounters Date Type Department Care Team (Late st Contact Info) Description 12/03/2024 1:00 PM HAY CHOPPER Allied Health/Nurse Visit [facility] [address] [phone] Pablo Villanueva MD [facility]. [address] [address] 01/17/2025 9:45 AM CDT Office Visit [address] [phone] Pablo Villanueva MD [facility]. [address] [address] 02/18/2025 2:15 PM CDT Allied Health/[facility], [facility] [address] [place] [address] Pablo Villanueva MD [facility]. [address] [address] documented as of this encounter Visit Diagnoses Not on filedocumented in this encounter Care Teams Plant Operator/Shift Supervisor Relationship Specialty Start Date End Date Pina Weaver NP [facility]. [facility] [address] [place] [address] PCP - General NURSE PRACTITIONER 05/10/18 08/12/21 [place] [address] [place] [address] PCP - General FAMILY PRACTICE 08/13/21 12/07/21 [place] [address] [place] [address] PCP - General FAMILY PRACTICE 12/08/21 10/09/22 Joseline Juarez NP 3417 [facility] [address] [place] [address] PCP - General NURSE PRACTITIONER 10/10/22 Pablo Villanueva MD Three [facility]. [place] [address] [place] [address] Anne Cane Flume Feeding Machine Operator CARDIOVASCULAR DISEASE 03/10/16 documented as of this encounter
--- OUTSIDE RECORDS SUMMARY | 2024-11-26 11:57 | XMS_ITS | Encounter Summary ---
Author Organization [facility] Address [facility] [place] [address] Care Team Providers Care Preparer Making Department Name Role Phone Pablo Villanueva MD Unavailable [phone] Pina Weaver NP Primary Care Provider Unav ailable Lyla Zendejas MD Primary Care Provider [phone] Conrad Pradhan MD Primary Care Provider [phone] Joseline Juarez NP Primary Care Provider [phone] Encounter Details Date Type Department Care Team (Late st Contact Info) Description 03/13/2020 MyChart Message Enc [facility] Medical [facility] Family & Internal Medicine [address] [phone] Pina Weaver QUARANTINE OFFICER Social History Tobacco Use Types Packs/Day Years Used Date Smoking Tobacco: Never Smokeless Tobacco: Never Alcohol Use Standard Drinks/Week Comments No 0 (1 standard drink = 0.6 oz pur e alcohol) PHQ-2 Answer Date Recorded PHQ-2 Score 0 09/14/2019 Sex and Gender Information Value Date Recorded Sex Assigned at Male 04/05/2019 4:16 PM CDT Legal Sex Male 11:24 PM CDT Gender Identity Male 04/05/2019 4:16 PM CDT Sexual Orientation Straight 04/05/2019 4: 16 PM CDT 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 Unable to assess 02/21/2020 12:04 PM CDT documented as of this encounter Plan of Treatment Upcoming Encounters Date Type Department Care Team (Late st Contact Info) Description 12/03/2024 1:00 PM PRODUCTION CLERK Allied Health/Nurse Visit [facility] [address] [place] [phone] Pablo Villanueva MD [facility]. [facility] [address] [place], [place] [address] 01/17/2025 9:45 AM CDT Office Visit [place] [phone] [place] [phone] Pablo Villanueva MD [facility]. [facility] [address] [place], [place] [address] 02/18/2025 2:15 PM CDT [facility] [address] [place], [place] [address] Pablo Villanueva MD [facility]. [facility] [address] [place], [place] [address] documented as of this encounter Visit Diagnoses Not on filedocumented in this encounter Care Teams Preparer Making Department Relationship Specialty Start Date End Date Pina Weaver NP [facility]. [facility] [address] [place] [address] PCP - General NURSE PRACTITIONER 05/10/18 08/12/21 [place] [address] [place], [place] [address] PCP - General FAMILY PRACTICE 08/13/21 12/07/21 [place] [address] [place] [address] PCP - General FAMILY PRACTICE 12/08/21 10/09/22 Joseline Juarez NP [address] [facility] [address] [place] [address] PCP - General NURSE PRACTITIONER 10/10/22 Pablo Villanueva MD Three [facility]. [address] [address] [place]ner Barrel Lathe Operator CARDIOVASCULAR DISEASE 03/10/16 documented as of this encounter
--- OUTSIDE RECORDS SUMMARY | 2024-11-26 11:57 | XMS_ITS | Encounter Summary ---
Author Organization [facility] Address [address] [place] [address] Care Team Providers Care Automotive Warranty Administrator Name Role Phone Pablo Villanueva MD Unavailable [phone] Lyla Zendejas MD Primary Care Provider [phone] Conrad Pradhan MD Primary Care Provider [phone] Joseline Juarez NP Primary Care Provider [phone] Encounter Details Date Type Department Care Team (Late st Contact Info) Description 08/13/2021 Rei-Frontiert Message Enc [facility] Family & Internal Medicine [facility] [address] [place] [address] [place] [address] [facility]. 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 No / Unsure 08/13/2021 6:55 AM CDT documented as of this encounter Plan of Treatment Upcoming Encounters Date Type Department Care Team (Late st Contact Info) Description 12/03/2024 1:00 PM MANAGER INPATIENT Allied Health/Nurse Visit [address] [phone] Pablo Villanueva MD [address] [id number] 01/17/2025 9:45 AM CDT Office Visit [address] [phone] Pablo Villanueva MD [address] [id number] 02/18/2025 2:15 PM CDT Allied Health/Nurse Visit [address] [address] Pablo Villanueva MD [address] 142079 documented as of this encounter Visit Diagnoses Not on filedocumented in this encounter Additional Health Concerns Assessment Noted Time PHQ-9 Depression Total Score: 0 08/13/20 7:05 AM CDT documented as of this encounter Care Teams Automotive Warranty Administrator Relationship Specialty [place] [address] [place] [address] PCP - General FAMILY PRACTICE 08/13/21 12/07/21 [place] [address] [place] [address] PCP - General FAMILY PRACTICE 12/08/21 10/09/22 [place] [address] [place] [address] [address] [place], [place] [id number] PCP - General NURSE PRACTITIONER 10/10/22 Pablo Villanueva MD [facility]. [address] [place] [address] [place] Recycling Coordinator CARDIOVASCULAR DISEASE 03/10/16 documented as of this encounter
--- OUTSIDE RECORDS SUMMARY | 2024-11-26 11:57 | XMS_ITS | Encounter Summary ---
Author Organization [facility] Address [address] [place] [address] Care Team Providers Care Title One Teacher Name Role Phone Pablo Villanueva MD Unavailable [phone] Pina Weaver LOCATION WORKER Primary Care Provider Unav eleazarable Lyla Zendejas MD Primary Care Provider [phone] Conrad Pradhan MD Primary Care Provider [phone] Joseline Juarez NP Primary Care Provider [phone] Encounter Details Date Type Department Care Team (Late st Contact Info) Description 12/25/2020 MyCharLeukoDx Message Enc [facility] [address] [address] [place], [facility] Provider Missed Carelink Transmission Social History Tobacco [...] 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 Unable to assess 12/15/2020 2:05 PM STORY WRITER documented as of this encounter Plan of Treatment Upcoming Encounters Date Type Department Care Team (Late st Contact Info) Description 12/03/2024 1:00 PM STORY WRITER Allied Health/Nurse Visit [facility] [address] [phone] Pablo Villanueva MD [facility]. [address] 864909 01/17/2025 9:45 AM CDT Office Visit [address] [phone] Pablo Villanueva MD [facility]. [address] [place] [address] 02/18/2025 2:15 PM CDT [facility] [address] [place] [address] Pablo Villanueva MD [facility]. [address] [place], [place] [address] documented as of this encounter Visit Diagnoses Not on filedocumented in this encounter Care Teams Title One Teacher Relationship Specialty Start Date End Date Pina Weaver NP [facility]. [address] [place] [address] PCP - General NURSE PRACTITIONER 05/10/18 08/12/21 [place] [address] [place] [address] PCP - General FAMILY PRACTICE 08/13/21 12/07/21 [place] [address] [place] [address] PCP - General FAMILY PRACTICE 12/08/21 10/09/22 Joseline Juarez NP [address] [facility] [address] [place] [address] PCP - General NURSE PRACTITIONER 10/10/22 Pablo Villanueva MD [facility]. [address] [address] Anne Uniform Designer CARDIOVASCULAR DISEASE 03/10/16 documented as of this encounter
--- OUTSIDE RECORDS SUMMARY | 2024-11-26 11:57 | XMS_ITS | Encounter Summary ---
Author Organization [facility] Address [address] [place] [address] Care Team Providers Care Daycare Assistant Name Role Phone Pablo Villanueva MD Unavailable [phone] Pina Weaver TRAFFIC OPERATOR Primary Care Provider Unav ailable Lyla Zendejas MD Primary Care Provider [phone] Conrad Pradhan MD Primary Care Provider [phone] Joseline Juarez NP Primary Care Provider [phone] Encounter Details Date Type Department Care Team (Late st Contact Info) Description 04/08/2021 Tequila Mobile Message Enc [facility] [address] [place], [facility] Provider Carelink due 04/06/21 not received Social History Tobacco Use Types Packs/Day Years [...] 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 [address] 4934[address] 01/17/2025 9:45 AM CDT Office Visit [place] [phone] [place] [phone] Pablo Villanueva MD [facility]. [address] [address]63[address] 02/18/2025 2:15 PM CDT Allied Health[facility] [address] [address] Pablo Villanueva MD [facility]. [address] [address] documented as of this encounter Visit Diagnoses Not on filedocumented in this encounter Care Teams Daycare Assistant Relationship Specialty Start Date End Date Pina Weaver NP [facility]. [facility] [address] [place] [address] PCP - General NURSE PRACTITIONER 05/10/18 08/12/21 [place] [id number] [place] [address] [id number] PCP - General FAMILY PRACTICE 08/13/21 12/07/21 [place] [address] [place] [address] PCP - General FAMILY PRACTICE 12/08/21 10/09/22 Joseline Juarez NP [address] [facility] [address] [place] [address] PCP - General NURSE PRACTITIONER 10/10/22 Pablo Villanueva MD [facility]. [address] [address] [place] Guest History Clerk CARDIOVASCULAR DISEASE 03/10/16 documented as of this encounter
--- OUTSIDE RECORDS SUMMARY | 2024-11-26 11:57 | XMS_ITS | Clinical Summary ---
Author Organization [facility] Address [address] [place] [address] Care Team Providers Care Power Shear Operator Name Role Phone Pablo Villanueva MD Unavailable [phone] Joseline Juarez NP Primary Care Provider [phone] Allergies Active Allergy Reactions Criticality Noted Date Comments Pravastatin Rash Low 10/04/2019 Medications TADALAFIL 10 MG tabletIndications: Erectile dysfunction of nonorganic origin TAKE 1 TABLET BY MOUTH EVERY DAY NEEDED AT LEAST 30 MINUTES PRIOR TO ANTICIPATED SEXUAL ACTIVITY 30 tablet 2 09/30/20 21 Active atorvastatin 40 MG tabletIndications: Mixed hyperlipidemia Take 1 tablet (40 mg total) by mouth nightly at bedtime. at bedtime 90 tablet 3 01/05/20 22 Active metoprolol tartrate 25 MG tabletIndications: Essential hypertension Take 1 tablet (25 mg total) by mouth 2 (two) times daily. 180 tablet 3 01/05/20 22 Active ASPIRIN EC 81 MG tablet TAKE 1 TABLET BY MOUTH EVERY DAY 30 tablet 11 01/15/20 22 Active enalapril (VASOTEC) 10 MG tablet Take 1 tablet (10 mg total) by mouth daily. Active hydroCHLOROthiazid e (HYDRODIURIL) 25 MG tablet Take 1 tablet (25 mg total) by mouth every morning. Active JARDIANCE 25 MG tablet Take 1 tablet (25 mg total) by mouth daily. 06/04/20 24 Active Active Problems Problem Noted Date Diagnosed Date Wears glasses 03/01/2018 Overview (04/05/2019): Description: for reading Non-rheumatic mitral regurgitation 11/14/2017 Pacemaker 06/11/2017 Overview (11/16/2024): Medtronic Gonzales Pacemaker implanted 11/15/2024 for SSS *Gen Change/Lead Revision done by Dr. Berger* GERD (gastroesophageal reflux disease) 7 Controlled type 2 diabetes m ellitus without complication ([facility]) 02/07/2015 Erectile dysfunction of nonorganic origin 2014 Hyperlipidemia 08/21/2012 SSS (sick sinus syndrome) ([facility]) Overview (11/16/2024): Medtronic Gonzales Pacemaker implanted 11/15/2024 for SSS *Gen Change/Lead Revision done by Dr. Berger* CAD (coronary artery disease) Hypertension, essential Dyslipidemia Encounters Date Type Department Care Team Description 11/16/2024 Telephone [facility] [address], [address] [place] [address] Mariia Crenshaw MA Postop Followup 11/16/2024 Scan [facility] [address], [address] [place] [address] Scanned, Doc Pccl 11/15/2024 MyChart Message Enc [facility] [address], [address] [place] [address] Becyk Juan RN Lead extraction date 10/30/2024 Telephone [facility] [address], [address] [place], [place] [address] Pablo Villanueva MD Information ([facility] Pre-Surgical Assessment) 09/07/2024 Telephone [facility] [address], [address] [place] [address] Becky Juan RN Follow Up Call (Will be getting RV lead extraction.) 09/06/2024 8:20 AM CARE TRANSITION COORDINATOR Allied Health/Nurse Visit [facility], [address] [place] [address] Pablo Villanueva MD Remote Device Check (Carelink remote pacemaker check) 09/05/2024 Telephone [facility], [facility] [address] [place] [address] Mariia Crenshaw MA Follow Up Call 09/04/2024 Telephone [facility], [address] [place] [address] Pablo Villanueva MD Surgical Clearance 09/03/2024 [place] Paymentshart Message Enc [facility] [address] [place] [phone] Pablo Villanueva MD medical clearance for eye surgery from Last 3 Months Immunizations Name Administration Dates Next Due Fluzone 6 Months+ Quad (0.5 mL Prefilled Syringe) 09/10/2020 Influenza (Generic) 07/27/2019,07/13/2013,2011 Influenza Adult (Generic) 08/12/2021,,07/27/2019,2017,08/14/2014,07/13/2013 Influenza Virus, Split 6-35 Mo 07/27/2019 Pneumococcal (Pneumovax 23) 09/10/2020 Shingrix 01/21/2021,09/23/2020 Tdap (Adacel) 08/13/2021 Zoster (Zostavax) [address] Unt/0.65Ml 09/23/2020 Family History Medical History Relation Comments Heart Disease Brother Heart Father Hypertension Father Cancer Mother breast cancer Hypertension Mother None Neg Hx Relation Status Comments Brother Alive Father Mother Alive Social History Tobacco Use Types Packs/Day Years Used Date Smoking Tobacco: Never Smokeless Tobacco: Never Tobacco Cessation:Counseling Given: No Alcohol Use Standard Drinks/Week Comments Yes 0 [...] 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 Not on file Not on file Last Filed Vital Signs Vital Sign Reading Time Taken Comments Blood Pressure 126/84 07/05/2024 10:03 AM CDT Pulse 51 07/05/2024 10:03 AM CDT Temperature 36.6 C (97.8 F) 03/31/2022 11:15 AM CDT Respiratory Rate 16 03/31/2022 5:30 PM CDT Oxygen Saturation 94% 03/31/2022 5:30 PM CDT Inhaled Oxygen Concentration - - Weight 94.3 kg (208 lb) 07/05/2024 10:03 AM CDT Height 170.2 cm (5' 7 ) 07/05/2024 10:03 AM CDT Body Mass Index 32.58 07/05/2024 10:03 AM CDT Plan of Treatment Upcoming Encounters Date Type Department Care Team (Late st Contact Info) Description 12/03/2024 1:00 PM CARE TRANSITION COORDINATOR Allied Health/Nurse Visit [facility] [address] [place] [address] Pablo Villanueva MD [facility]. [address] [address] 01/17/2025 9:45 AM CDT Office Visit [facility] [id number] [place] [address] Pablo Villanueva MD [facility]. [address] [place] [address] 02/18/2025 2:15 PM CDT Allied Health/Nurse Visit [facility], [address] [place] [address] Pablo Villanueva MD [facility]. [facility] [address] [place] [address] Health Maintenance Due Date Last Done Comments Kidney Health Evaluation 1965 Hepatitis C 1981 Pneumococcal Vaccine: Pediatrics (0 to 5 Years) and At-Risk Patients (6 to 64 Years) (2 of 2 - PCV) 09/10/2021 09/10/2020 Hemoglobin A1C 02/10/2022 08/13/2021, 11/2019, 05/26/2020, Additional history exists Annual Physical 08/13/2022 08/13/2021, 11/2019, 09/01/2018 Diabetes: Retinopathy Eye Exam 04/08/2023 04/08/2021 RSV Immunization or 60+ Years (1 - Risk 60-74 years 1-dose series) 2023 COVID-19 Vaccine ( season) 2024 10/05/2021, 12/28/2020, 12/07/2020 Influenza Adult (#1) 2024 08/12/2021, 07/24/2021, 09/10/2020, Additional history exists Colorectal Cancer Screening Colonoscopy (10 Years) 09/25/2024 09/25/2014 ASCVD LDL 10/25/2024 10/25/2023, 03/10, 02/08/2022, Additional history exists Lipid Panel 10/25/2024 10/25/2023, 03/10, 02/08/2022, Additional history exists DTaP, Tdap and Td Vaccines (2 - Td or Tdap) 08/13/2031 08/13/2021 Zoster Vaccines Completed 01/21/2021, 09/09, 09/23/2020 Meningococcal B Vaccine Aged Out No l onger eligible based on patient's age to complete this topic Meningococcal Vaccine Aged Out No sisi cameron eligible based on patient's age to complete this topic RSV Immunizations Under 20 Months Aged Out No longer eligible based on patient's age to complete this topic Medical Devices Implanted Type Area Senior Clerk Device Identifier Shelf Expiration Date Model / Serial / Lot Ra Lead Uaudznb-Btx-N ri-01/01/2015 Implanted: (Quantity not on file) Lead Implant MEDTRONIC CARDIAC RHYTHM AND HEART FAILURE - DIV M 5076-45 / [id number] / Description:RA-Appendage, Ch ronic from 2014 Rv Lead Ulzmmqu-Clh-R ri-11/15/2024 Implanted:Qty : 1 on 11/15/2024 by Chong Berger MD Lead Implant MEDTR[employer]IC CARDIAC RHYTHM AND HEART FAILURE - DIV M 5076-58 / [id number] / Description:RV-Septum Pacemaker-[facility]-11/15/2024 Implanted:Qty : 1 on 11/15/2024 by Chong Berger MD Pacemaker [employer]IC CARDIAC RHYTHM AND HEART FAILURE - DIV M [id number] / [id number] / Explanted Type Area Senior Clerk Device Identifier Shelf Expiration Date Model / Serial / Lot Rv Lead Implant-2014 Implanted: (Quantity not on file) Explanted:03/2025 by Chong Berger MD (Quantity not on file) Lead Implant MEDTRONIC CARDIAC RHYTHM AND HEART FAILURE - DIV M 5076-52 / [id number] / Pacemaker-Med t 01/01/15-2014 Implanted: (Quantity not on file) Explanted:03/2025 by Chong Berger MD (Quantity not on file) Pacemaker [employer] CARDIAC RHYTHM AND HEART FAILURE - DIV M [id number] / [id number] / Procedures Procedure Name Priority Date/Time Associated Diagnosis Comments LIPID PANEL Routine 10/25/2023 HEMOGLOBIN, GLYCOSYLATED Routine 08/13/2021 7:44 AM CDT Controlled type 2 diabetes mellitus without complication, without long-term current use of insulin ([facility]) DIABETIC RETINOPATHY EXAM (NEGATIVE)(SCAN ORDER) Routine 04/08/2021 COLONOSCOPY Routine 09/25/2014 12:00 AM CARE TRANSITION COORDINATOR from Last 3 Months or Most Recently Relevant to Health Maintenance Results * LIPID PANEL (10/25/2023) CHOLESTEROL 155 TRIGLYCERIDES 182 HDL 43 LDL (CALCULATED) 84 NON HDL CHOLESTEROL 112 us Default History Genericprovider LABORATORY Edited Result - Final * (ABNORMAL) HEMOGLOBIN, GLYCOSYLATED (08/13/2021 7:44 AM CDT) HGB A1C 7.3(H) <5.7 % 08/13/2021 6:40 PM CDT [facility] Comment: INCREASED RISK OF DIABETES <5.7% NON-DIABETES 5.7-6.4% INCREASED RISK FOR FUTURE DIABETES > OR = 6.5 CONSISTENT WITH DIABETES STANDARDS OF MEDICAL CARE IN DIABETES-2010 DIABETES CARE, 33(SUPP 1): S1-S61,2010 08/13/2021 7:44 AM CDT us Lyla Zendejas MD LABORATORY Final Result [facility] [address] [place] [address], [place] [phone] * DIABETIC RETINOPATHY EXAM (NEGATIVE)(SCAN) (04/08/2021) us Documents Scanned SCANNING Final Result [facility] * Colonoscopy (09/25/2014 12:00 AM CARE TRANSITION COORDINATOR) 09/25/2014 09/25/2014 Narrative [facility] TO EPIC CONVERSION - 09/25/2014 12:00 AM CARE TRANSITION COORDINATOR Documented hx of procedure Procedure Note , Generic ConversionMD - 08/13/2018 Documented hx of procedure us Generic Conversion Md MD BAUER PROCEDURE ORDERABLES Final Result [facility] TO EPIC CONVERSION from Last 3 Months or Most Recently Relevant to Health Maintenance Insurance UMR Advance Directives Documents on File Type Date Recorded Patient General Manager Farm Expl anation Advance Directives and Livin g Will 12/27/2014 POWER OF RECREATIONAL VEHICLE RESORT MANAGER * Full Code (Latest Code Status on File) Date Activated Date Inactivated Comments 03/31/2022 4:21 PM 03/31/2022 8:09 PM Care Teams Power Shear Operator Relationship Specialty Start Date End Date Joseline Juarez NP [address] [facility] [address] [place] [address] PCP - General NURSE PRACTITIONER 10/10/22 Pablo Villanueva MD [facility]. [address] [address] Vendor Wrapper Dipper CARDIOVASCULAR DISEASE 03/10/16
--- OUTSIDE RECORDS SUMMARY | 2024-11-26 11:58 | XMS_ITS | Continuity of Care Document ---
Author Organization [facility] Address [address] [place] [address] Phone Care Team Providers Care Asbestos Wire Finisher Name Role Phone Israel Urena DO Unavailable Unavailable Advance Directives Directive Yes / No Effective Date File Name No Information Encounters Encounter Description Practice Location Reason(s) For Visit Diagnoses Date Provider Providers Copied on Encounter [facility], [address], [place], [place], [id number], [place] tel:[phone] [facility] No Information Romel [address]. [address] [place], [address], [place]. tel: [phone] Family History Family Member Type Diagnosis Age At Onset No Information Payers Payer name Insurance type Covered constitution party ID Authoriza tion(s) [facility] Commercial [id number] Social History Type Description Quantity Date Captured Comments Sex Male Smoking Status No Information Chief Complaint And Reason For Visit No Information Reason For Referral Reason For Referral No Information History Of Present Illness Encounter Date Complaint History Of Prese nt Illness No Information Functional Status Date Functional Assessmen t No Information Instructions Date Instruction Additional Infor mation No Information Assessments Type Assessment Date No Information Patient Care Teams Name Effective Dates (start - stop) Status Members No Information
[2024-11-26 13:54] LABS: Basophils Absolute Auto 0.1 K/mm3 (0.0-0.1); Basophils Percent Auto 0.7 % (0.2-1.2); Eosinophils Absolute Auto 0.2 K/mm3 (0-0.3); Eosinophils Percent Auto 2.4 % (0-4.4); Hematocrit 44.4 % (42.0-52.0); Immature Granulocyte Absolute 0.04 K/mm3 (0.00-0.031); Immature Granulocyte Percent A 0.6 % (0-0.5); Lymphocytes Absolute Auto 1.57 K/mm3 (0.9-3.2); Lymphocytes Percent Auto 23.5 % (18.3-44.2); Mean Corpuscular HGB Conc 33.8 g/dl (32-36); Mean Corpuscular Hemoglobin 29.4 pg (26-34); Mean Corpuscular Volume 86.9 fl (80-100); Monocytes Absolute Auto 0.6 K/mm3 (0.1-0.6); Monocytes Percent Auto 8.5 % (2.6-8.5); Neutrophils Absolute Auto 4.3 K/mm3 (1.3-6.7); Neutrophils Percent Auto 64.3 % (45.5-73.1); Platelet Count Result 176 k/mm3 (150-375); Red Blood Count 5.11 M/mm3 (4.6-6.20); White Blood Count 6.7 K/mm3 (4.5-10.0)
[2024-11-26 14:42] LABS: Alanine Aminotransferase 28 U/L (6-50); Albumin Level 4.2 g/dL (3.5-5.1); Alkaline Phosphatase 122 U/L (38-126); Anion Gap 10 mmol/L (4-12); Aspartate Amino Transferase 26 U/L (17-59); Bilirubin,Total 0.7 mg/dL (0.2-1.3); Blood Urea Nitrogen 27 mg/dL (9-20); Calcium 9.4 mg/dL (8.4-10.2); Carbon Dioxide 27 mmol/L (22-30); Chloride 103 mmol/L (98-107); Cholesterol 157 mg/dL (0-200); Estimated Glomerular Filt Rate > 60; Glucose 132 mg/dL (65-110); HDL Direct 45 mg/dL; Potassium 3.9 mmol/L (3.4-5.0); Sodium 140 mmol/L (137-145); Triglycerides 122 mg/dL (<150)
[2024-11-26 14:53] LABS: LDL Cholesterol Direct 87 mg/dL
[2024-11-26 15:05] LABS: Creatinine Urine 68.4 mg/dL
[2024-11-26 15:09] LABS: Prostate Specific Antigen 0.8 ng/mL (< OR = 4.0)
[2024-11-26 15:10] LABS: MALB Creatinine Ratio 32.5 mg/g (0-30); Microalbumin Urine Random 22.2 mg/L (0-16.7)
[2024-11-26 17:58] LABS: Hemoglobin A1C 7.6 % (<5.7)
== END 2024-11-26 09:16 | disposition home or self-care (01) ==
LOC: ANHGOSHLAB 09:16
PROVIDERS: PCP Nurse Practitioner; Visit Provider Nurse Practitioner
DX: E11.69 Type 2 diabetes mellitus with other specified complication (principal); E78.5 Hyperlipidemia, unspecified; Z12.5 Encounter for screening for malignant neoplasm of prostate
CPT/HCPCS: 36415; 80053; 80061; 82043; 83036; 84153; 85025; G0103

== ENCOUNTER 2025-05-24 07:59 | Outpatient (CLI) | payer OTHER, SELFPAY ==
--- OUTSIDE RECORDS SUMMARY | 2025-05-24 08:03 | XMS_ITS | Clinical Summary ---
Author Organization [facility] Administrative Offices Address [address] [place] [address] Care Team Providers Care Partnership Manager Name Role Phone Unavailable Primary Care Provider [...] for pain 10 Tablet 11/15/2024 2:11 PM MAINTENANCE DIRECTOR 5 Active Active Problems Problem Noted Date Diagnosed Date Malfunction of electrode lead of cardiac pacemak er 11/15/2024 SSS (sick sinus syndrome) 11/15/2024 Symptomatic bradycardia 11/15/2024 Cardiac pacemaker in situ 11/15/2024 Encounters Date Type Department Care Team Description 04/02/2025 External Device Data [facility] ABSTRACTION Provider, Abstract from Last 3 Months Family History Medical History Relation Name Comments Heart Disease Brother Heart Disease Father No Known Problems Mother Relation Name Status Comments Brother Father Mother Social History Tobacco Use Types Packs/Day Years Used Date Smoking Tobacco: Never Alcohol Use Standard Drinks/Week Comments Yes 0 (1 standard drink = 0.6 oz pur e alcohol) rarely Sex and Gender Information Value Date Recorded Sex Assigned at Not on file Legal Sex Male 3:59 PM MAINTENANCE DIRECTOR Gender Identity Not on file Sexual Orientation Not on file Last Filed Vital Signs Vital Sign Reading Time Taken Comments Blood Pressure 121/80 11/15/2024 2:30 PM MAINTENANCE DIRECTOR Pulse 65 11/15/2024 2:30 PM MAINTENANCE DIRECTOR Temperature 36.6 C (97.9 F) 11/15/2024 10:05 AM MAINTENANCE DIRECTOR Respiratory Rate 19 11/15/2024 2:30 PM MAINTENANCE DIRECTOR Oxygen Saturation 94% 11/15/2024 2:30 PM MAINTENANCE DIRECTOR Inhaled Oxygen Concentration - - Weight 98.4 kg (217 lb) 11/15/2024 6:31 AM MAINTENANCE DIRECTOR Height 175.3 cm (5' 9) 11/15/2024 6:31 AM MAINTENANCE DIRECTOR Body Mass Index 32.05 11/15/2024 6:31 AM MAINTENANCE DIRECTOR Plan of Treatment Health Maintenance Due Date [...] - Risk 60-74 years 1-dose series) 2023 COLORECTAL SCREENING 09/25/2024 09/25/2014, 12/24/19 12 Colorectal Cancer Screening 09/25/2024 INFLUENZA VACCINE (#1) 2025 09/10/2020 DTAP/TDAP/TD VACCINES (2 - T d or Tdap) 08/13/2031 08/13/2021 ZOSTER VACCINE Completed 01/21/2021, 09/23/2020 Medical Devices Implanted Type Area Last Repairer Helper Device Identifier Shelf Expiration Date Model / Serial / Lot Lead Capsurefix Novus Mri 58cm Endocardial Pacing 5077 5076-58 - [id number] Implanted:Qty: 1 on 11/15/2024 by Chong Berger MD at [facility] Lead Left: Chest [employer]- CRM - BULK BUY [id number] 02/15/2026 5076-58 / [id number] / [id number] Antibacterial Envelope Med [id number] - [id number] Implanted:Qty: 1 on 11/15/2024 by Chong Berger MD at [facility] Mesh Left: Chest [employer]- CARD RHYTHM MGMT [id number] 08/17/2025 [id number] / / [id number] Pacemaker More Xt Dr Bashir Ip Dual Chmbr Surescan [id number] - [id number] Implanted:Qty: 1 on 11/15/2024 by Chong Berger MD at [facility] Pacemaker Left: Chest [employer]- CRM - BULK BUY [id number] 04/22/2026 [id number] / [id number] / Explanted Type Area Last Repairer Helper Device Identifier Shelf Expiration Date Model / Serial / Lot Lead Capsurefix Novus Mri 58cm Endocardial Pacing 5077 5076-58 - [id number] Explanted:Qty: 1 on 11/15/2024 by Chong Berger MD at [facility] Lead N/A: Chest Wall [employer]- CRM - BULK BUY 5076-58 / [id number] / Description:Implant date: Pacemaker Advisa Dr Mckay Mcfadden [id number] - Csc-12/22/2014 Implanted:12/22 (Quantity not on file) Explanted:Qty: 1 on 11/15/2024 by Chong Berger MD at [facility] Pacemaker Chest Wall [employer]- CRM - BULK BUY [id number] / [id number] / Description:Implant date: Per [employer] rep - MRI Confirmed conditional on 1.5 and 3T. - gera 10/13/20 Insurance RX [employer] Member Subscriber Plan / Payer (Ef fective 2024-Present) Name:Phillip Hammonds Relation to Subscriber:Self Name:Phillip Hammonds Subscriber ID:Not on file Payer ID:Not on file Type:Not on file Address: [employer] Advance Directives For more information, please contact: [phone] Documents on File Type Date Recorded Patient Lounge Car Attendant Expl anation Advance Directive POA 10/30/2024 7:59 AM A dvance Directive POA * Full Code (Latest Code Status on File) Date Activated Date Inactivated Comments 11/15/2024 9:44 AM 11/15/2024 5:15 PM
--- OUTSIDE RECORDS SUMMARY | 2025-05-24 08:03 | XMS_ITS | Clinical Summary ---
Author Organization [facility] Address [address] [place] [id number] Care Team Providers Care Senior Compliance Officer Name Role Phone Conrad Pradhan MD Primary Care Provider [phone] Allergies Active Allergy Reactions Criticality Noted Date [...] complication, without long-term current use of insulin Take 1 tablet (1,000 mg total) by [...] except for elevated TSH level-recommended follow-up with crime scene photographer, stated had already called crime scene photographer and was waiting for call back today. [...] except for elevated TSH level-recommended follow-up with crime scene photographer, stated had already called crime scene photographer and was waiting for a call back today. Snoring 12/14/2021 Hypersomnia 12/14/2021 Assessment & Plan (12/14/2021 9:59 AM RESOURCE PROGRAM TEACHER): I have ordered a nocturnal polysomnogram split night protocol if necessary, no MSLT. Class 1 obesity due to exces s calories without serious comorbidity with body mass index (BMI) of 32.0 to 32.9 in adult 11/17/2021 Assessment & Plan (11/17/2021 10:46 AM RESOURCE PROGRAM TEACHER): Recommended aggressive Lifestyle modification and weight loss for improving overall weight related health conditions. Follow up in 1 or 3 months for continuing Lifestyle Medicine education and management visit. Dyslipidemia 11/17/2021 Hypertension, essential 11/17/2021 Pacemaker 11/17/2021 Controlled type 2 diabetes m ellitus without complication, without long-term current use of insulin 11/17/2021 Surgical History Surgery Date Site/Laterality Comments [...] on file Legal Sex Male 12:38 AM RESOURCE PROGRAM TEACHER Gender Identity Not on file Sexual Orientation Not on file Obstetrics History Last Filed Vital Signs Vital Sign Reading Time Taken Comments Blood Pressure 140/92 06/01/2022 10:37 PM CDT Pulse 69 06/01/2022 10:37 PM CDT Temperature 36.6 C (97.9 F) 06/01/2022 10:37 PM CDT Respiratory Rate 18 09/30/2022 10:52 AM RESOURCE PROGRAM TEACHER Oxygen Saturation 96% 06/01/2022 10:37 PM CDT Inhaled Oxygen Concentration - - Weight 88.5 kg (195 lb) 09/30/2022 10:52 AM RESOURCE PROGRAM TEACHER Height 170.2 cm (5' 7) 09/30/2022 10:52 AM RESOURCE PROGRAM TEACHER Body Mass Index 30.54 09/30/2022 10:52 AM RESOURCE PROGRAM TEACHER Plan of Treatment Health Maintenance Due Date [...] 2024 10/05/2021, 12/28/2020, 12/07/2020 Influenza Vaccine (#1) 2025 , 08/12/2021, 07/24/2021, Additional history exists DTaP/Tdap/Td Vaccine (2 - Td or Tdap) 08/13/2031 08/13/2021 Zoster Vaccine Completed 01/21/2021, 09/09, 09/23/2020 Procedures Procedure Name Priority Date/Time Associated Diagnosis Comments POCT HEMOGLOBIN A1C Routine 05/31/2022 7 :25 AM CDT Controlled type 2 diabetes mellitus without complication, without long-term current use of insulin (HCC) PSA, TOTAL Routine 03/01/2018 COLONOSCOPY Routine 12/24/2011 from Last 3 Months or Most Recently Relevant to Health Maintenance Results * POCT hemoglobin A1c (05/31/2022 7:25 AM CDT) Hemoglobin A1C, POC 6.2 Blood specimen (specimen) 05/31/2022 7:25 AM CDT Narrative Yves Esthela GarsiaBRUCE DeleonN - 05/31/2022 7:25 AM CDT Lot [id number] 12/03/2023 Conrad Pradhan MD POINT OF CARE TEST ORDERABLES Fi nal Result * PSA, total Blood (03/01/2018) SCRIBED PSA, Total 0.87 > - 400 Blood specimen (specimen) 03/01/2018 Historical Provider LAB BLOOD ORDERABLES Katrin l Result * Colonoscopy (12/24/2011) Anatomical Region Laterality Modality Other Historical Provider ENDOSCOPY PROCEDURES Katrin l Result from Last 3 Months or Most Recently Relevant to Health Maintenance [facility] Care Teams Senior Compliance Officer Relationship Specialty Start Date End Date Conrad Pradhan MD PCP - General Family Medicine 10/20/21
[2025-05-24 13:24] LABS: Alanine Aminotransferase 20 U/L (6-50); Albumin Level 4.2 g/dL (3.5-5.1); Alkaline Phosphatase 79 U/L (38-126); Anion Gap 8 mmol/L (4-12); Aspartate Amino Transferase 32 U/L (17-59); Bilirubin,Total 0.8 mg/dL (0.2-1.3); Blood Urea Nitrogen 23 mg/dL (9-20); Calcium 9.4 mg/dL (8.4-10.2); Carbon Dioxide 26 mmol/L (22-30); Chloride 102 mmol/L (98-107); Estimated Glomerular Filt Rate > 60; Glucose 110 mg/dL (65-110); Potassium 3.7 mmol/L (3.4-5.0); Sodium 136 mmol/L (137-145); Total Protein 6.9 g/dL (6.3-8.2)
[2025-05-24 14:50] LABS: Hemoglobin A1C 6.7 % (<5.7)
== END 2025-05-24 08:00 | disposition home or self-care (01) ==
LOC: ANHGOSHLAB 08:01
PROVIDERS: PCP Nurse Practitioner; Visit Provider Nurse Practitioner
DX: E11.9 Type 2 diabetes mellitus without complications (principal)
CPT/HCPCS: 36415; 80053; 83036